=== PATIENT | male | born 1965 | race Caucasian/White ===

== ENCOUNTER 2020-11-03 19:45 | Emergency (ER) | payer MEDICAID ==
--- NOTE | 2020-11-03 21:15 | ED Physician Documentation ---
PD HPI CHEST PAIN - Stated complaint Stated Complaint: CP/SOA/BACK PX - Chief complaint Chief Complaint: Resp - History obtained from History obtained from: Patient - History of Present Illness Timing - onset: How many minutes ago (approximately 45 minutes [facility]OME[facility]) Timing - onset during: Rest Timing - details: Abrupt onset Pain level max: 5 Pain level now: 0 Quality: Pain Location: Left chest Radiation: Other (left upper back) Improved by: Other (gradually improved and resolved by the time of this evaluation but no obvious ameliorating factors) Worsened by: Other (there were no apparent exacerbating factors) Associated symptoms: Shortness of air. No: Diaphoresis, Nausea, Vomiting, Palpitations, Cough Similar symptoms before: Has not had sx before Recently seen: Not recently seen - Additional information Additional information: patient says he had sudden onset dyspnea with left chest pain that radiated to the left upper back, onset approximately 45 minutes DOME[facility]IC MAID while at home at rest in bed. He says the symptoms have gradually improved and are resolved by the time of this evaluation. He says he has h/o right spontaneous pneumothorax in the past and this was one of his chief concerns. He had the Jackson [employer] Jackson COVID vaccination this past Monday and since then has had generalized weakness with decreased appetite, diarrhea, generalized myalgias. Review of Systems Constitutional: reports: Reviewed and negative Cardiac: reports: Chest pain / pressure. denies: Palpitations, Pedal edema, Calf pain Respiratory: reports: Dyspnea. denies: Cough, Hemoptysis, Wheezing GI: reports: Abdominal Pain (across upper abdomen). denies: Nausea, Vomiting, Constipation, Diarrhea, Hematemesis, Bloody / black stool : denies: Dysuria, Frequency Musculoskeletal: denies: Extremity swelling Neurologic: reports: Generalized weakness. denies: Focal weakness, Numbness, Headache PD PAST MEDICAL HISTORY - Past Medical History Past Medical History: Yes Respiratory: COPD - Allergies Allergies/Adverse Reactions: Allergies Allergy/AdvReac Type Severity Reaction Status Date / Time No Known Drug Allergies Allergy Verified 11/03/20 19:57 PD ED PE NORMAL - Vitals Vital signs reviewed: Yes - General General: Alert and oriented X 3, No acute distress, Well developed/nourished - HEENT HEENT: Other (tacky/pasty mucous membranes) - Cardiac Cardiac: RRR, No murmur - Respiratory Respiratory: No respiratory distress, Other (distant breath sounds bilaterally) - Abdomen Abdomen: Soft, Other (TTP across upper abdomen, most prominently in epigastrium; no guarding or rebound) - Back Back: No CVA TTP - Derm Derm: Normal color, Warm and dry - Extremities Extremities: No edema Results - Vitals Vitals: Oxygen O2 Source Room air - EKG (time done) No standard instances Rate: Rate (enter#) (72) Rhythm: NSR Dumas: Normal Intervals: Normal MT QRS: Normal Ischemia: Normal ST segments - Labs Labs: Laboratory Tests 11/03/20 11/03/20 11/03/20 22:20 22:20 22:20 WBC 5.6 RBC 5.30 Hgb 16.7 Hct 50.2 MCV 94.7 H MCH 31.5 H MCHC 33.3 RDW 13.1 Plt Count 243 MPV 9.2 Neut # (Auto) 2.9 Lymph # (Auto) 2.0 Winston # (Auto) 0.6 Eos # (Auto) 0.1 Baso # (Auto) 0.1 Absolute Nucleated RBC 0.00 Nucleated RBC % 0.0 Sodium 140 Potassium 3.7 Chloride 105 Carbon Dioxide 25 Anion Gap 10.0 BUN 12 Creatinine 0.9 Estimated GFR (MDRD) 88 L Glucose 93 Calcium 9.0 Total Bilirubin 0.6 AST 25 ALT 27 Alkaline Phosphatase 62 Troponin I High Sens 5.7 Total Protein 7.9 Albumin 4.4 Globulin 3.5 Albumin/Globulin Ratio 1.3 Lipase 42 - Rads (name of study) chest xray Radiology: Prelim report reviewed, See rad report CT A/P with IV contrast Radiology: Prelim report reviewed, See rad report PD MEDICAL DECISION MAKING - ED course Complexity details: reviewed results, re-evaluated patient, considered differential, d/w patient ED course: Unremarkable blood tests, EKG, and CXR. His chief complaint is left chest pain, but on exam he has significant TTP across upper abdomen although without rebound or guarding; thus CT A/P ordered, and these results are unremarkable for acute process. On reevaluation, he says he feels well and is requesting discharge home. Departure - Departure Disposition: 01 Home, Self Care Clinical Impression: Chest pain Condition: Good Instructions: ED Chest Pain Atypical Unkn Cause Follow-Up: Dontae Ashley MD [Primary Care Provider] - Discharge Date/Time: 11/04/20 02:14
[2020-11-03] MEDS ORDERED: SODIUM CHLORIDE 0.9% 1,000 ML IV STA (21:52)
[2020-11-03] MEDS ORDERED: IOPAMIDOL-300 100 ML VIAL ONE (22:26)
[2020-11-03 22:39] LABS: BASOPHILS # (AUTO) 0.1 10^3/uL (0.0-0.1); BASOPHILS % (AUTO) 0.9 %; EOSINOPHILS # (AUTO) 0.1 10^3/uL (0.0-0.7); EOSINOPHILS % (AUTO) 1.8 %; HCT - HEMATOCRIT 50.2 % (42.0-52.0); HGB - HEMOGLOBIN 16.7 g/dL (14.0-18.0); LYMPHOCYTES % (AUTO) 35.6 %; MEAN CORPUSCULAR HEMOGLOBIN 31.5 pg (27.0-31.0); MEAN CORPUSCULAR HGB CONC 33.3 g/dL (32.0-36.0); MEAN CORPUSCULAR VOLUME 94.7 fL (80.0-94.0); MEAN PLATELET VOLUME 9.2 fL (7.4-11.4); MONOCYTES # (AUTO) 0.6 10^3/uL (0.0-1.0); MONOCYTES % (AUTO) 10.6 %; NEUTROPHILS # (AUTO) 2.9 10^3/uL (1.5-6.6); NEUTROPHILS % (AUTO) 50.9 %; PLT - PLATELET COUNT 243 10^3/uL (130-450); RED CELL DISTRIBUTION WIDTH 13.1 % (12.0-15.0); WHITE BLOOD COUNT 5.6 x10^3/uL (4.8-10.8)
[2020-11-03 22:57] LABS: ALBUMIN 4.4 g/dL (3.2-5.5); ALBUMIN/GLOBULIN RATIO 1.3 (1.0-2.2); BILIRUBIN,TOTAL 0.6 mg/dL (0.2-1.0); CREATININE 0.9 mg/dL (0.6-1.2); POTASSIUM 3.7 mmol/L (3.5-5.0); TOTAL PROTEIN 7.9 g/dL (6.7-8.2)
[2020-11-04] MEDS ORDERED: IOPAMIDOL-300 100 ML VIAL IVP ONE (00:02)
[2020-11-04 01:29] VITALS: BP 127/88
--- NOTE | 2020-11-04 07:42 | XRAY Report ---
PROCEDURE: Chest 2 View X-Ray INDICATIONS: left chest pain, dyspnea TECHNIQUE: 2 view(s) of the chest. COMPARISON: None. FINDINGS: Surgical changes and devices: None. Lungs and pleura: No pleural effusions or pneumothorax. Lungs are clear. Lungs are hyperinflated king ggesting COPD. Mediastinum: Mediastinal contours are normal. Heart size is normal. Bones and chest wall: No suspicious bony abnormalities. Soft tissues appear unremarkable. IMPRESSION: No acute cardiopulmonary disease process. Reviewed by: Joan Milner MD, PhD on 11/04/2020 7:41 AM PDT Approved by: Joan Milner MD, PhD on 11/04/2020 7:41 AM PDT Station ID: [id number]
--- NOTE | 2020-11-04 07:43 | CT Report ---
PROCEDURE: Abdomen/Pelvis W INDICATIONS: upper abdominal pain CONTRAST: IV CONTRAST: Isovue 300 ml: 100 PO CONTRAST: *NO PO CONTRAST TECHNIQUE: After the administration of intravenous contrast, 5 mm thick sections acquired from the diaphragms to the symphysis. 5 mm thick coronal and sagittal reformats were acquired. For radiation dose reducti on, the following was used: automated exposure control, adjustment of mA and/or kV according to tyshawn ent size. COMPARISON: None. FINDINGS: Image quality: Excellent. ABDOMEN: Lung bases: Lung bases are clear. Bibasilar emphysematous change. Heart size is normal. Solid organs: Liver and spleen are normal in size and enhancement. Gallbladder is unremarkable. Bi liary system is non dilated. Pancreas enhances normally. No adrenal nodules. Kidneys demonstrate n ormal size and enhancement, without hydronephrosis. There is a 6 cm exophytic left renal cyst. Peritoneum and bowel: Decompressed stomach. This makes the stomach wall looks somewhat prominent. Morris wel loops demonstrate normal wall thickness and caliber. No free fluid or air. Nodes and vessels: No retroperitoneal or mesenteric adenopathy by size criteria. Aorta and inferior vena cava are normal in size. Miscellaneous: No ventral hernias. PELVIS: Genitourinary: The bladder is mildly distended. The prostate is enlarged. There is thickening of the anterior wall of the stomach. Miscellaneous: No inguinal hernias or adenopathy. Bones: No suspicious bony lesions. No vertebral body compression fractures. IMPRESSION: 1. No evidence of acute abdominal process. 2. COPD. 3. Prostate enlargement. 4. Focal anterior bladder wall thickening. A preliminary report with the above findings was provided at the time of the study by [facility]. Reviewed by: Eddie Jon MD on 11/04/2020 7:42 AM PDT Approved by: Eddie Jon MD on 11/04/2020 7:42 AM PDT Station ID: [id number]
== END 2020-11-04 02:14 | disposition home or self-care (01) ==
LOC: ED 19:45
DX: R07.89 Other chest pain (principal); J44.9 Chronic obstructive pulmonary disease, unspecified
CPT/HCPCS: 36415; 71046; 74177; 80053; 83690; 84484; 85025; 93005; 99284; Q9967

== ENCOUNTER 2021-03-20 07:57 | Emergency (ER) | payer MEDICAID ==
[2021-03-20] MEDS ORDERED: SODIUM CHLORIDE 0.9% 1,000 ML IV STA (08:21)
[2021-03-20] MEDS ORDERED: ONDANSETRON 4 MG/2 ML VIAL IVP STA ×2 (08:21→10:37)
[2021-03-20] MEDS ORDERED: KETOROLAC 30 MG/ML VIAL IVP STA (08:21)
--- NOTE | 2021-03-20 08:27 | ED Physician Documentation ---
PD HPI CHEST PAIN - Stated complaint Stated Complaint: BACK/CHEST PAIN - Chief complaint Chief Complaint: Back Pain - History obtained from History obtained from: Patient - History of Present Illness Timing - onset: How many days ago (2) Timing - onset during: Rest Timing - duration: Days (2) Timing - details: Abrupt onset, Still present Quality: Sharp, Pain Location: Left chest Radiation: Back, Abdominal Improved by: Rest Worsened by: Exertion, Inspiration, Movement, Palpation, Position Associated symptoms: Shortness of air, Nausea. No: Diaphoresis, Vomiting, Cough Similar symptoms before: No diagnosis Recently seen: Not recently seen - Additional information Additional information: 36-year-old male with a prior history of spontaneous pneumothorax has come to the emergency department today with acute left-sided back pain radiating to his chest and abdomen. He has had some nausea associated with this he has not vomited. He does have more pain with inspiration and movement. He states he spent the day in bed yesterday and today continue to have this same pain and did not sleep well last night. He has had similar episode and has been evaluated in the emerge department previously at that time his symptoms resolved and he had no further episodes. Review of Systems Constitutional: denies: Fever Eyes: denies: Decreased vision Ears: denies: Ear pain Nose: denies: Congestion Throat: denies: Sore throat Cardiac: reports: Chest pain / pressure. denies: Palpitations, Pedal edema, Calf pain Respiratory: reports: Dyspnea. denies: Cough, Wheezing GI: reports: Abdominal Pain, Nausea. denies: Abdominal Swelling, Vomiting, Constipation, Diarrhea : denies: Dysuria, Frequency PD PAST MEDICAL HISTORY - Past Medical History Past Medical History: Yes Cardiovascular: None Respiratory: COPD, Other Neuro: None Endocrine/Autoimmune: None GI: Ulcers : Benign prostate hypertrophy, Other HEENT: Other Psych: None Musculoskeletal: None Derm: None Other Past Medical History: left pneumothorax - Past Surgical History Past Surgical History: Yes General: Colonoscopy Cardiovascular: Other - Present Medications Home Medications: Ambulatory Orders Medication Instructions Recorded Confirmed Albuterol Sulfate [Proair Hfa 1 - 2 puffs IH Q4HR PRN 03/20/21 03/20/21 Inhaler] Amox/Clav 875/125 [Augmentin] 1 each PO Q12H #20 tablet 03/20/21 Azithromycin [Zithromax] 250 mg PO DAILY #4 tablet 03/20/21 Fluticasone/Salmeterol [Advair 1 puffs IH BID 03/20/21 03/20/21 500-50 Diskus] Ipratropium [place] 1 spray NS DAILY 03/20/21 03/20/21 Sucralfate [Carafate] 1 gm PO ACHS #60 tablet 03/20/21 Tamsulosin [Flomax] 0.4 mg PO DAILY 03/20/21 03/20/21 Zolpidem [Ambien] 0 mg PO HS PRN 03/20/21 03/20/21 - Allergies Allergies/Adverse Reactions: Allergies Allergy/AdvReac Type Severity Reaction Status Date / Time No Known Drug Allergies Allergy Verified 03/20/21 08:00 - Social History Does the pt smoke?: No Smoking Status: Former smoker Does the pt drink ETOH?: No Does the pt have substance abuse?: Yes Substance Use and Type: Marijuana - Immunizations Immunizations are current?: Yes - POLST Patient has POLST: No PD ED PE NORMAL - Vitals Vital signs reviewed: Yes (tachy ) - General General: Alert and oriented X 3, Well developed/nourished, Other (tachypneic but able to speak in full sentences appears anxious) - HEENT HEENT: Atraumatic, PERRL, EOMI - Neck Neck: Supple, no meningeal sign, No bony TTP - Cardiac Cardiac: No murmur, Other (tachy ) - Respiratory Respiratory: Other (tcahypneic at rest with clear sounds reduced volume) - Abdomen Abdomen: Soft, Other (epigastric tenderness is present. ) Results - Vitals Vitals: Vital Signs - 24 hr 03/20/21 03/20/21 03/20/21 08:00 08:16 08:33 Temperature 37.1 C Heart Rate 102 H 102 H 96 Respiratory 20 24 20 Rate Blood Pressure 110/60 108/71 110/74 O2 Saturation 100 100 98 03/20/21 03/20/21 03/20/21 09:02 09:30 10:34 Temperature 37.1 C 36.2 C L Heart Rate 97 99 95 Respiratory 21 20 21 Rate Blood Pressure 112/75 116/67 117/68 O2 Saturation 100 94 96 Oxygen O2 Source Room air - EKG (time done) 0806 Rate: Rate (enter#) (98) Rhythm: NSR Compare to prior EKG: Changed from prior EKG (SPT 10-28-20 the rate is faster and the morphology of the inferior limb leads has changed. No ischemia) Computer interpretation: Agree with computer - Labs Labs: Laboratory Tests 03/20/21 03/20/21 03/20/21 08:10 08:10 08:10 WBC 26.7 H RBC 5.08 Hgb 16.7 Hct 48.8 MCV 96.1 H MCH 32.9 H MCHC 34.2 RDW 13.4 Plt Count 239 MPV 9.8 Neut # (Auto) 23.2 H Lymph # (Auto) 0.7 L Tift # (Auto) 1.2 H Eos # (Auto) 0.1 Baso # (Auto) 0.1 Absolute Nucleated RBC 0.00 Band Neuts % (Manual) Not Reportable Abnorm Lymph % (Manual) Not Reportable Nucleated RBC % 0.0 Neutrophils # (Manual) Not Reportable Lymphocytes # (Manual) Not Reportable Monocytes # (Manual) Not Reportable Eosinophils # (Manual) Not Reportable Basophils # (Manual) Not Reportable Differential Comment Y WBC Morphology NORMAL APPEARANCE Platelet Estimate NORMAL (130-450,000) Platelet Morphology NORMAL APPEARANCE RBC Morph Micro Appear NORMAL APPEARANCE Sodium 140 Potassium 4.3 Chloride 100 L Carbon Dioxide 26 Anion Gap 14.0 H BUN 18 Creatinine 1.2 Estimated GFR (MDRD) 63 L Glucose 87 Calcium 9.0 Total Bilirubin 1.0 AST 25 ALT 25 Alkaline Phosphatase 54 Troponin I High Sens 6.6 Total Protein 7.0 Albumin 3.8 Globulin 3.2 Albumin/Globulin Ratio 1.2 Lipase 24 Nasal Adenovirus (PCR) Nasal B. parapertussis DNA (PCR) Nasal Coronavir 229E PCR Nasal Coronavir HKU1 PCR Nasal Coronavir NL63 PCR Nasal Coronavir OC43 PCR Nasal Enterovir/Rhinovir PCR Nasal Influenza B PCR Nasal Influenza A PCR Nasal Parainfluen 1 PCR Nasal Parainfluen 2 PCR Nasal Parainfluen 3 PCR Nasal Parainfluen 4 PCR Nasal RSV (PCR) Nasal B.pertussis DNA PCR Nasal C.pneumoniae (PCR) Rohith Human Metapneumo PCR Nasal M.pneumoniae (PCR) Nasal SARS-CoV-2 (PCR) 03/20/21 08:53 WBC RBC Hgb Hct MCV MCH MCHC RDW Plt Count MPV Neut # (Auto) Lymph # (Auto) Tift # (Auto) Eos # (Auto) Baso # (Auto) Absolute Nucleated RBC Band Neuts % (Manual) Abnorm Lymph % (Manual) Nucleated RBC % Neutrophils # (Manual) Lymphocytes # (Manual) Monocytes # (Manual) Eosinophils # (Manual) Basophils # (Manual) Differential Comment WBC Morphology Platelet Estimate Platelet Morphology RBC Morph Micro Appear Sodium Potassium Chloride Carbon Dioxide Anion Gap BUN Creatinine Estimated GFR (MDRD) Glucose Calcium Total Bilirubin AST ALT Alkaline Phosphatase Troponin I High Sens Total Protein Albumin Globulin Albumin/Globulin Ratio Lipase Nasal Adenovirus (PCR) NOT DETECTED Nasal B. parapertussis DNA (PCR) NOT DETECTED Nasal Coronavir 229E PCR NOT DETECTED Nasal Coronavir HKU1 PCR NOT DETECTED Nasal Coronavir NL63 PCR NOT DETECTED Nasal Coronavir OC43 PCR NOT DETECTED Nasal Enterovir/Rhinovir PCR NOT DETECTED Nasal Influenza B PCR NOT DETECTED Nasal Influenza A PCR NOT DETECTED Nasal Parainfluen 1 PCR NOT DETECTED Nasal Parainfluen 2 PCR NOT DETECTED Nasal Parainfluen 3 PCR NOT DETECTED Nasal Parainfluen 4 PCR NOT DETECTED Nasal RSV (PCR) NOT DETECTED Nasal B.pertussis DNA PCR NOT DETECTED Nasal C.pneumoniae (PCR) NOT DETECTED Rohith Human Metapneumo PCR NOT DETECTED Nasal M.pneumoniae (PCR) NOT DETECTED Nasal SARS-CoV-2 (PCR) NOT DETECTED - Rads (name of study) chest Radiology: Prelim report reviewed (Impression: Airspace opacity in left upper lobe which is new compared to the prior exam and is most compatible with pneumonia. Recommend follow-up to resolution. Emphysematous change.), EMP read indepedently, See rad report PD MEDICAL DECISION MAKING - ED course Complexity details: reviewed old records, reviewed results, re-evaluated patient, considered differential, d/w patient ED course: 56-year-old male presents with draumatic left sided chest pain worse with inspiration and movement and he has additional abdominal pain associated with this. He has been taking a lot of ibuprofen over the last day. On evaluation in the emergency department he is found to have pneumonia on his chest x-ray this is an atypical appearance and is tested for Covid and is negative for that, as well as the other viruses and pathogens tested. He is treated for community- acquired pneumonia in the emergency department with Rocephin intravenously a gram and 500 mils of a azithromycin. In addition is given dexamethasone and Tor adol with improvement in his pain. He continues to have pain in his abdomen and this begins to overweigh everything else that is present. He is administered a GI cocktail with 10 mL of viscous lidocaine 30 mils of Mylanta and a gram of Carafate. He has resolution of his abdominal pain. He is administered an additional 40 mg of Protonix intravenously. We will treat the patient for community-acquired pneumonia and gastritis. Departure - Departure Disposition: 01 Home, Self Care Clinical Impression: CAP (community acquired pneumonia) Qualifiers: Laterality: left Lung location: upper lobe of lung Qualified Code(s): J18.9 - Pneumonia, unspecified organism Gastritis Qualifiers: Gastritis type: other gastritis Chronicity: acute Gastritis bleeding: without bleeding Qualified Code(s): K29.00 - Acute gastritis without bleeding Condition: Stable Instructions: ED Pneumonia Adult, ED PUD Vs Gastritis Follow-Up: Your, doctor in [place] [Other] Prescriptions: Amox/Clav 875/125 [Augmentin] 1 each PO Q12H #20 tablet Sucralfate [Carafate] 1 gm PO ACHS #60 tablet Azithromycin [Zithromax] 250 mg PO DAILY #4 tablet Comments: Today we have discovered you have pneumonia in the left upper lobe of your lung. We are expecting the antibiotic therapy to be successful in improving this pneumonia and expectation is to have improvement day by day. In addition it appears you have a gastritis or inflammation to the lining of your stomach and this is likely related to the use of ibuprofen. The recommendation is to discontinue the use of the ibuprofen discontinue any alcohol use and take a medication on a regular basis to reduce the acid in your stomach such as Pepcid AC or Nexium which are available [id number]. In addition I have prescribed Carafate which is an aid to healing. These medicines should be taken for at least 2 weeks.
--- NOTE | 2021-03-20 08:42 | XRAY Report ---
PROCEDURE: Chest 1 View X-Ray INDICATIONS: Chest Pain TECHNIQUE: One view of the chest was acquired. COMPARISON: CXR 11/03/2020. Lung bases on CT abdomen and pelvis 11/03/2020. FINDINGS: Surgical changes and devices: None. Lungs and pleura: No pleural effusions or pneumothorax. Irregular opacity in the left upper lobe, ne w. Prominent lung volumes. Emphysematous change. Mediastinum: Mediastinal contours appear unchanged. Heart size is normal. Bones and chest wall: No suspicious bony lesions. Overlying soft tissues appear unremarkable. IMPRESSION: Airspace opacity in the left upper lobe which is new compared to the prior exam and is most compatibl e with pneumonia. Recommend follow-up to resolution. Emphysematous change. Reviewed by: Aniket Roque MD on 03/20/2021 7:41 AM NANCY Approved by: Aniket Roque MD on 03/20/2021 7:41 AM NANCY Station ID: [id number]
[2021-03-20 09:08] LABS: BASOPHILS # (AUTO) 0.1 10^3/uL (0.0-0.1); BASOPHILS % (AUTO) 0.3 %; EOSINOPHILS # (AUTO) 0.1 10^3/uL (0.0-0.7); EOSINOPHILS % (AUTO) 0.5 %; HCT - HEMATOCRIT 48.8 % (42.0-52.0); HGB - HEMOGLOBIN 16.7 g/dL (14.0-18.0); LYMPHOCYTES # (AUTO) 0.7 10^3/uL (1.5-3.5); LYMPHOCYTES % (AUTO) 2.4 %; MEAN CORPUSCULAR HEMOGLOBIN 32.9 pg (27.0-31.0); MEAN CORPUSCULAR HGB CONC 34.2 g/dL (32.0-36.0); MEAN CORPUSCULAR VOLUME 96.1 fL (80.0-94.0); MEAN PLATELET VOLUME 9.8 fL (7.4-11.4); MONOCYTES # (AUTO) 1.2 10^3/uL (0.0-1.0); MONOCYTES % (AUTO) 4.3 %; NEUTROPHILS # (AUTO) 23.2 10^3/uL (1.5-6.6); NEUTROPHILS % (AUTO) 87.2 %; PLT - PLATELET COUNT 239 10^3/uL (130-450); RED BLOOD COUNT 5.08 10^6/uL (4.70-6.10); RED CELL DISTRIBUTION WIDTH 13.4 % (12.0-15.0); WHITE BLOOD COUNT 26.7 x10^3/uL (4.8-10.8)
[2021-03-20 09:20] LABS: ALBUMIN 3.8 g/dL (3.2-5.5); ALBUMIN/GLOBULIN RATIO 1.2 (1.0-2.2); CREATININE 1.2 mg/dL (0.6-1.2); POTASSIUM 4.3 mmol/L (3.5-5.0)
[2021-03-20] MEDS ORDERED: cefTRIAXone 1 GM VIAL IVP STA (09:29)
[2021-03-20] MEDS ORDERED: DEXAMETHASONE 10 MG/ML VIAL IVP STA (09:29)
[2021-03-20] MEDS ORDERED: AZITHROMYCIN INJ 500 MG in SODIUM CHLORIDE 0.9% 250 ML IV STA (09:29)
[2021-03-20] MEDS ORDERED: SUCRALFATE 1 GM/10 ML UDC PO STA (10:02)
[2021-03-20 10:34] LABS: B. PARAPERTUSSIS- RESP PCR PAN NOT DETECTED; B. PERTUSSIS- RESP PCR PANEL NOT DETECTED; C. PNEUMONIAE- RESP PCR PANEL NOT DETECTED; CORONAVIRUS 229E-RESP PCR NOT DETECTED; CORONAVIRUS HKU1-RESP PCR NOT DETECTED; CORONAVIRUS NL63-RESP PCR NOT DETECTED; CORONAVIRUS OC43-RESP PCR NOT DETECTED; HUMAN METAPNEUMOVIRUS NOT DETECTED; INFLUENZA A- RESP PCR PANEL NOT DETECTED; INFLUENZA B - RESP PCR PANEL NOT DETECTED; M. PNEUMONIAE- RESP PCR PANEL NOT DETECTED; PARAINFLUENZA VIRUS 1 NOT DETECTED; PARAINFLUENZA VIRUS 2 NOT DETECTED; PARAINFLUENZA VIRUS 3 NOT DETECTED; PARAINFLUENZA VIRUS 4 NOT DETECTED; RHINOVIRUS/ENTEROVIRUS NOT DETECTED; RSV- RESP PCR PANEL NOT DETECTED; SARS-CoV-2 -RESP PCR PANEL NOT DETECTED
[2021-03-20] MEDS ORDERED: MAG HYDROX/AL HYDROX/SIMETH 30 ML UDC PO STA (10:40)
[2021-03-20] MEDS ORDERED: LIDOCAINE VISCOUS 2% 15 ML UDC MM STA (10:40)
[2021-03-20 10:41] LABS: DIFFERENTIAL COMMENT Y; PLATELET ESTIMATE, MANUAL NORMAL (130-450,000) (NORMAL); PLATELET MORPHOLOGY NORMAL APPEARANCE (NORMAL); RBC MORPHOLOGY (MULTIPLE) NORMAL APPEARANCE (NORMAL); WBC MORPHOLOGY (MULTIPLE) NORMAL APPEARANCE (NORMAL)
[2021-03-20] MEDS ORDERED: PANTOPRAZOLE 40 MG VIAL IVP STA (11:18)
[2021-03-20 12:21] VITALS: BP 112/78
== END 2021-03-20 12:24 | disposition home or self-care (01) ==
LOC: ED 07:57
DX: J18.9 Pneumonia, unspecified organism (principal); K29.00 Acute gastritis without bleeding; Z20.822 Contact with and (suspected) exposure to COVID-19
CPT/HCPCS: 0202U; 36415; 71045; 80053; 83690; 84484; 85025; 93005; 96365; 96375; 96376; 99284; 99285; A9270

== ENCOUNTER 2021-03-26 20:09 | Inpatient (IN) | payer MEDICAID ==
--- NOTE | 2021-03-26 20:23 | ED Physician Documentation ---
PD HPI DYSPNEA - Stated complaint Stated Complaint: SOA - History obtained from History obtained from: Patient - History of Present Illness Timing - onset: How many weeks ago (1) Timing - details: Gradual onset, Waxing and waning Pain level now: 3 Associated symptoms: Chest pain / discomfort. No: Fever, Cough, Hemoptysis, Wheezing Similar symptoms before: Diagnosis (COPD) Recently seen: Emergency Dept - Additional information Additional information: T+R 6 days ago for dyspnea, work up at that time resulted in diagnosis of pneumonia; he was able to be discharged from ED, rx for zithromax and augmentin, which he has been taking as prescribed (finished with zithromax, still has few days of 10-day course of augmentin remaining). He presents at this time because "my breathing never got better" (per patient, referring to still feeling as short of breath as when he was here last week), as well as developed 4 days of constant chest pain across anterior chest that has no exacerbating nor ameliorating factors. Has COPD, does not use oxygen at home Review of Systems Constitutional: reports: Chills, Other ("feel really cold, then really hot" (per patient), but has been taking temperature at home and has not had fever). denies: Fever, Sweats Cardiac: reports: Chest pain / pressure. denies: Palpitations, Pedal edema, Calf pain Respiratory: reports: Dyspnea, Cough (minimal, moist but nonproductive). denies: Hemoptysis, Wheezing GI: reports: Reviewed and negative Musculoskeletal: denies: Extremity swelling PD PAST MEDICAL HISTORY - Past Medical History Cardiovascular: None Respiratory: COPD, Other Neuro: None Endocrine/Autoimmune: None GI: Ulcers : Benign prostate hypertrophy, Other HEENT: Other Psych: None Musculoskeletal: None Derm: None - Past Surgical History Past Surgical History: Yes General: Colonoscopy Cardiovascular: Other - Present Medications Home Medications: Ambulatory Orders Medication Instructions Recorded Confirmed Albuterol Sulfate [Proair Hfa 1 - 2 puffs IH Q4HR PRN 03/20/21 03/26/21 Inhaler] Amox/Clav 875/125 [Augmentin] 1 each PO Q12H #20 tablet 03/20/21 03/26/21 Azithromycin [Zithromax] 250 mg PO DAILY #4 tablet 03/20/21 03/26/21 Fluticasone/Salmeterol [Advair 1 puffs IH BID 03/20/21 03/26/21 500-50 Diskus] Ipratropium [place] 1 spray NS DAILY 03/20/21 03/26/21 Sucralfate [Carafate] 1 gm PO ACHS #60 tablet 03/20/21 03/26/21 Tamsulosin [Flomax] 0.4 mg PO DAILY 03/20/21 03/26/21 Zolpidem [Ambien] 0 mg PO HS PRN 03/20/21 03/26/21 - Allergies Allergies/Adverse Reactions: Allergies Allergy/AdvReac Type Severity Reaction Status Date / Time No Known Drug Allergies Allergy Verified 03/20/21 08:00 - Social History Does the pt smoke?: No Smoking Status: Former smoker Does the pt drink ETOH?: No Does the pt have substance abuse?: Yes - Immunizations Immunizations are current?: Yes - POLST Patient has POLST: No PD ED PE NORMAL - Vitals Vital signs reviewed: Yes - General General: Alert and oriented X 3, No acute distress, Well developed/nourished - Neck Neck: Supple, no meningeal sign - Cardiac Cardiac: RRR, No murmur - Respiratory Respiratory: No respiratory distress - Abdomen Abdomen: Soft, Non tender - Extremities Extremities: No edema PD ED PE EXPANDED - Respiratory Respiratory: Decreased breath sounds (distant breath sounds bilaterally). No: Wheezing, Rhonchi, Rales Results - Vitals Vitals: Vital Signs - 24 hr 03/26/21 03/26/21 03/26/21 20:23 20:49 20:55 Temperature 36.3 C L Heart Rate 96 89 91 Respiratory 28 H 18 28 H Rate Blood Pressure 126/69 O2 Saturation 96 98 03/26/21 03/26/21 03/26/21 21:06 22:16 22:38 Temperature Heart Rate 84 102 H 83 Respiratory 18 24 22 Rate Blood Pressure 116/71 113/73 O2 Saturation 94 94 03/27/21 01:41 Temperature 37.0 C Heart Rate 84 Respiratory 17 Rate Blood Pressure O2 Saturation 94 Oxygen O2 Source Room air - EKG (time done) No standard instances Rate: Rate (enter#) (96) Rhythm: NSR [place]: Normal Intervals: Normal MO QRS: Normal Ischemia: Normal ST segments, Other (questionable Q waves inferior leads were not on last week's ED EKG but were on 11/03/20 ED EKG) - Labs Labs: Laboratory Tests 03/26/21 03/26/21 03/26/21 20:30 20:30 20:30 WBC 23.9 H RBC 4.64 L Hgb 14.7 Hct 43.8 MCV 94.4 H MCH 31.7 H MCHC 33.6 RDW 14.5 Plt Count 520 H MPV 9.2 Neut # (Auto) 20.1 H Lymph # (Auto) 1.7 [place] # (Auto) 1.3 H Eos # (Auto) 0.2 Baso # (Auto) 0.1 Absolute Nucleated RBC 0.00 Nucleated RBC % 0.0 Sodium 135 Potassium 3.4 L Chloride 96 L Carbon Dioxide 26 Anion Gap 13.0 BUN 16 Creatinine 0.8 Estimated GFR (MDRD) 100 Glucose 104 H Lactic Acid Calcium 8.4 L Troponin I High Sens 7.4 B-Natriuretic Peptide Nasal Adenovirus (PCR) Nasal B. parapertussis DNA (PCR) Nasal Coronavir 229E PCR Nasal Coronavir HKU1 PCR Nasal Coronavir NL63 PCR Nasal Coronavir OC43 PCR Nasal Enterovir/Rhinovir PCR Nasal Influenza B PCR Nasal Influenza A PCR Nasal Parainfluen 1 PCR Nasal Parainfluen 2 PCR Nasal Parainfluen 3 PCR Nasal Parainfluen 4 PCR Nasal RSV (PCR) Nasal B.pertussis DNA PCR Nasal C.pneumoniae (PCR) Rohith Human Metapneumo PCR Nasal M.pneumoniae (PCR) Nasal SARS-CoV-2 (PCR) Urine Opiates Screen Ur Oxycodone Screen Urine Methadone Screen Ur Propoxyphene Screen Ur Barbiturates Screen Ur Tricyclics Screen Ur Phencyclidine Scrn Ur Amphetamine Screen U Methamphetamines Scrn U Benzodiazepines Scrn Urine Cocaine Screen U Cannabinoids Screen 03/26/21 03/26/21 03/27/21 20:30 21:43 00:15 WBC RBC Hgb Hct MCV MCH MCHC RDW Plt Count MPV Neut # (Auto) Lymph # (Auto) [place] # (Auto) Eos # (Auto) Baso # (Auto) Absolute Nucleated RBC Nucleated RBC % Sodium Potassium Chloride Carbon Dioxide Anion Gap BUN Creatinine Estimated GFR (MDRD) Glucose Lactic Acid 1.0 Calcium Troponin I High Sens B-Natriuretic Peptide 67 Nasal Adenovirus (PCR) Nasal B. parapertussis DNA (PCR) Nasal Coronavir 229E PCR Nasal Coronavir HKU1 PCR Nasal Coronavir NL63 PCR Nasal Coronavir OC43 PCR Nasal Enterovir/Rhinovir PCR Nasal Influenza B PCR Nasal Influenza A PCR Nasal Parainfluen 1 PCR Nasal Parainfluen 2 PCR Nasal Parainfluen 3 PCR Nasal Parainfluen 4 PCR Nasal RSV (PCR) Nasal B.pertussis DNA PCR Nasal C.pneumoniae (PCR) Rohith Human Metapneumo PCR Nasal M.pneumoniae (PCR) Nasal SARS-CoV-2 (PCR) Urine Opiates Screen NEGATIVE Ur Oxycodone Screen NEGATIVE Urine Methadone Screen NEGATIVE Ur Propoxyphene Screen NEGATIVE Ur Barbiturates Screen NEGATIVE Ur Tricyclics Screen NEGATIVE Ur Phencyclidine Scrn NEGATIVE Ur Amphetamine Screen NEGATIVE U Methamphetamines Scrn NEGATIVE U Benzodiazepines Scrn NEGATIVE Urine Cocaine Screen NEGATIVE U Cannabinoids Screen POSITIVE H 03/27/21 01:38 WBC RBC Hgb Hct MCV MCH MCHC RDW Plt Count MPV Neut # (Auto) Lymph # (Auto) [place] # (Auto) Eos # (Auto) Baso # (Auto) Absolute Nucleated RBC Nucleated RBC % Sodium Potassium Chloride Carbon Dioxide Anion Gap BUN Creatinine Estimated GFR (MDRD) Glucose Lactic Acid Calcium Troponin I High Sens B-Natriuretic Peptide Nasal Adenovirus (PCR) NOT DETECTED Nasal B. parapertussis DNA (PCR) NOT DETECTED Nasal Coronavir 229E PCR NOT DETECTED Nasal Coronavir HKU1 PCR NOT DETECTED Nasal Coronavir NL63 PCR NOT DETECTED Nasal Coronavir OC43 PCR NOT DETECTED Nasal Enterovir/Rhinovir PCR NOT DETECTED Nasal Influenza B PCR NOT DETECTED Nasal Influenza A PCR NOT DETECTED Nasal Parainfluen 1 PCR NOT DETECTED Nasal Parainfluen 2 PCR NOT DETECTED Nasal Parainfluen 3 PCR NOT DETECTED Nasal Parainfluen 4 PCR NOT DETECTED Nasal RSV (PCR) NOT DETECTED Nasal B.pertussis DNA PCR NOT DETECTED Nasal C.pneumoniae (PCR) NOT DETECTED Rohith Human Metapneumo PCR NOT DETECTED Nasal M.pneumoniae (PCR) NOT DETECTED Nasal SARS-CoV-2 (PCR) NOT DETECTED Urine Opiates Screen Ur Oxycodone Screen Urine Methadone Screen Ur Propoxyphene Screen Ur Barbiturates Screen Ur Tricyclics Screen Ur Phencyclidine Scrn Ur Amphetamine Screen U Methamphetamines Scrn U Benzodiazepines Scrn Urine Cocaine Screen U Cannabinoids Screen - Rads (name of study) chest xray Radiology: Prelim report reviewed, See rad report PD MEDICAL DECISION MAKING - ED course Complexity details: reviewed old records, reviewed results, re-evaluated patient, considered differential, d/w patient ED course: c/o worsening dyspnea since being T+R from this ED 6 days ago when he was prescribed both zithromax (completed 5 day course) and augmentin (completed 6 of 10 day course). 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 His CXR shows worsening PHU and lingular process suspicious for pneumonia. Given worsening despite the antibiotics, will admit for further treatment and observation. Departure - Departure Disposition: [facility] DC/Xfer Clinical Impression: Pneumonia Qualifiers: Pneumonia type: due to unspecified organism Laterality: left Lung location: upper lobe of lung Qualified Code(s): J18.9 - Pneumonia, unspecified organism Condition: Stable Discharge Date/Time: 03/27/21 02:14
[2021-03-26] MEDS ORDERED: IPRATROPIUM/ALBUTEROL 3 ML NEB INH STA (20:35)
[2021-03-26] MEDS ORDERED: methylPREDNISolone SUCCINATE 125 MG/2 ML VIAL IVP STA (20:35)
[2021-03-26 20:52] LABS: BASOPHILS # (AUTO) 0.1 10^3/uL (0.0-0.1); BASOPHILS % (AUTO) 0.4 %; EOSINOPHILS # (AUTO) 0.2 10^3/uL (0.0-0.7); EOSINOPHILS % (AUTO) 0.9 %; HCT - HEMATOCRIT 43.8 % (42.0-52.0); HGB - HEMOGLOBIN 14.7 g/dL (14.0-18.0); LYMPHOCYTES # (AUTO) 1.7 10^3/uL (1.5-3.5); LYMPHOCYTES % (AUTO) 7.1 %; MEAN CORPUSCULAR HEMOGLOBIN 31.7 pg (27.0-31.0); MEAN CORPUSCULAR HGB CONC 33.6 g/dL (32.0-36.0); MEAN CORPUSCULAR VOLUME 94.4 fL (80.0-94.0); MEAN PLATELET VOLUME 9.2 fL (7.4-11.4); MONOCYTES # (AUTO) 1.3 10^3/uL (0.0-1.0); MONOCYTES % (AUTO) 5.3 %; NEUTROPHILS # (AUTO) 20.1 10^3/uL (1.5-6.6); NEUTROPHILS % (AUTO) 84.2 %; PLT - PLATELET COUNT 520 10^3/uL (130-450); RED BLOOD COUNT 4.64 10^6/uL (4.70-6.10); RED CELL DISTRIBUTION WIDTH 14.5 % (12.0-15.0); WHITE BLOOD COUNT 23.9 x10^3/uL (4.8-10.8)
[2021-03-26] MEDS ORDERED: ALBUTEROL NEB 2.5 MG/3 ML INH STA (20:52)
[2021-03-26 20:58] LABS: CALCIUM 8.4 mg/dL (8.5-10.3); CREATININE 0.8 mg/dL (0.6-1.2); POTASSIUM 3.4 mmol/L (3.5-5.0)
[2021-03-27] MEDS ORDERED: PIPERACILLIN/TAZOBACTAM 3.375 GM in SODIUM CHLORIDE 0.9% MINIBAG 100 ML IV STA (01:40)
[2021-03-27] MEDS ORDERED: ZOLPIDEM 5 MG TABLET PO PRN (01:45)
[2021-03-27 01:46] LABS: MUDS CUTOFF CONCENTRATIONS CUTOFF CONC BELOW:
[2021-03-27] MEDS ORDERED: ONDANSETRON 4 MG/2 ML VIAL IVP PRN (01:47)
[2021-03-27] MEDS ORDERED: SODIUM CHLORIDE FLUSH 0.9% 10 ML SYRINGE IVP PRN (01:47)
[2021-03-27] MEDS ORDERED: HYDROcod/ACETAM 5/325 MG TABLET PO PRN (01:47)
[2021-03-27 01:57] LABS: AMPHETAMINE SCREEN,URINE NEGATIVE (NEGATIVE); BARBITURATE SCREEN,UR NEGATIVE (NEGATIVE); BENZODIAZEPINES SCREEN, URINE NEGATIVE (NEGATIVE); COCAINE SCREEN URINE NEGATIVE (NEGATIVE); METHADONE SCREEN, URINE NEGATIVE (NEGATIVE); METHAMPHETAMINES SCREEN, URINE NEGATIVE (NEGATIVE); OPIATE SCREEN, URINE NEGATIVE (NEGATIVE); OXYCODONE SCREEN, URINE NEGATIVE (NEGATIVE); PROPOXYPHENE SCREEN, URINE NEGATIVE (NEGATIVE); THC CANNABINOID SCREEN, URINE POSITIVE (NEGATIVE); TRICYCLIC ANTIDEPRESSANT,URINE NEGATIVE (NEGATIVE)
[2021-03-27] MEDS ORDERED: POTASSIUM CHLORIDE 20 MEQ TABLET PO ONE (02:23)
--- NOTE | 2021-03-27 02:28 | HISTORY & PHYSICAL EXAMINATION ---
History and Physical - History and Physical Chief complaint: Cough and left-sided chest pain Source of history: ER signout, patient, medical record review History of present illness: The patient is a 56-year-old white male with past medical history of COPD however no oxygen dependence and no recent history of steroid use. He is compliant with his inhalers and he quit smoking more than 15 years ago. Sees a food science technician regularly. He was vaccinated for Covid several months ago. Developed left-sided chest discomfort about a week ago and was seen in the ER on March 20, 2021. Conclusion of the ER work-up was left upper lobe pneumonia, pleuritic chest pain and gastritis in the setting of NSAID use for pain. The patient at that time had no oxygen requirement, was hemodynamically stable, although notably had white blood cell count at 26. Covid test was negative. He was felt stable to receive IV antibiotic during the ER stay and subsequently continue oral antibiotics/outpatient treatment. He was discharged with Zithromax and Augmentin prescriptions and received sucralfate for gastritis. He took the medications as prescribed but regardless continued with worsening symptoms. He felt chest congestion, had cough but could not expectorate. Continued with worsening left-sided chest pain, mostly when he coughed. [place] weak and ill in general, had sweats but no fever. In the past several days he could no longer smoke marijuana as he felt unwell. He described weight loss due to decreased oral intake. When he smokes marijuana his taste sensation changes and since he stopped smoking he feels strong smell and taste of all foods, most everything would make him nauseous therefore he significantly reduce his oral intake. Even before current illness he was thin. He presented back to the ER overnight on March 26 to March 27. He had n ormal oxygen saturation however was seen with increased work of breathing with respiratory rate in the high 20s/low 30s. Temperature was 37 Celsius. Patient was noted tachycardic with heart rate above 90. Repeat chest x-ray showed worsening left upper lobe infiltrate consistent with worsening pneumonia. Cardiac work-up was negative including troponin and BNP. Covid test pending. White blood cell count was elevated at 23.9, lactic acid however was normal. Past medical history: COPD/no history of oxygen dependence/ Compliant with inhalers, sees a food science technician regularly History of spontaneous pneumothorax remotely Benign prostatic hypertrophy Outpatient medications: Albuterol Sulfate [Proair Hfa Inhaler] 1 - 2 puffs IH Q4HR PRN 03/20/21 Amox/Clav 875/125 [Augmentin] 1 each PO Q12H #20 tablet 03/20/21 Azithromycin [Zithromax] 250 mg PO DAILY #4 tablet 03/20/21 Fluticasone/Salmeterol [Advair 500-50 Diskus] 1 puffs IH BID 03/20/21 Ipratropium [place] 1 spray NS DAILY 03/20/21 Sucralfate [Carafate] 1 gm PO ACHS #60 tablet 03/20/21 Tamsulosin [Flomax] 0.4 mg PO DAILY 03/20/21 Zolpidem [Ambien] 0 mg PO HS PRN 03/20/21 Allergies: No known drug allergies Family history: Patient reports no family history of lung disease. Social history and functional status: The patient is a functional adult, lives with his . He has history of heavy cigarette smoking, used to smoke 2 packs/day however when he was diagnosed with COPD he quit which was about 15 years ago. Since then he "only" smokes cannabinoid. CODE STATUS: Full code Review of symptoms: 12 point review done, pertinent positives and negatives listed above at history present illness, there was no additional positive. Physical exam: Vital Signs - 24 hr 03/26/21 03/26/21 03/26/21 20:23 20:49 20:55 Temperature 36.3 C L Heart Rate 96 89 91 Respiratory 28 H 18 28 H Rate Blood Pressure 126/69 O2 Saturation 96 98 03/26/21 03/26/21 03/26/21 21:06 22:16 22:38 Temperature Heart Rate 84 102 H 83 Respiratory 18 24 22 Rate Blood Pressure 116/71 113/73 O2 Saturation 94 94 03/27/21 01:41 Temperature 37.0 C Heart Rate 84 Respiratory 17 Rate Blood Pressure O2 Saturation 94 Oxygen O2 Source Room air General: Well-developed acutely ill-appearing male with increased work of breathing/increased respiratory rate, gets pale and sweats on minimal activity such as sitting up in bed HEENT: Dry oral mucosa, ridged tongue Respiratory: Increased work of breathing with respiratory rate in the low 30s, decreased air movement above all lung palacios without wheezing, fine crackles posteriorly CVS: S1, S2, regular, no murmur rub or gallop. Abdomen: Benign abdomen, bowel tones present, nontender, nondistended. Neurologic: Alert, oriented; no focal lateralizing sign. Psych: Cooperative. Lymph: No edema. Skin: Pallor, diaphoresis Musculoskeltal:Temporal wasting, visible bones, no fat pads Diagnostic work-up: Laboratory Tests 03/26/21 03/26/21 03/26/21 20:30 20:30 20:30 WBC 23.9 H RBC 4.64 L Hgb 14.7 Hct 43.8 MCV 94.4 H MCH 31.7 H MCHC 33.6 RDW 14.5 Plt Count 520 H MPV 9.2 Neut # (Auto) 20.1 H Lymph # (Auto) 1.7 [place] # (Auto) 1.3 H Eos # (Auto) 0.2 Baso # (Auto) 0.1 Absolute Nucleated RBC 0.00 Nucleated RBC % 0.0 Sodium 135 Potassium 3.4 L Chloride 96 L Carbon Dioxide 26 Anion Gap 13.0 BUN 16 Creatinine 0.8 Estimated GFR (MDRD) 100 Glucose 104 H Lactic Acid Calcium 8.4 L Troponin I High Sens 7.4 B-Natriuretic Peptide Urine Opiates Screen Ur Oxycodone Screen Urine Methadone Screen Ur Propoxyphene Screen Ur Barbiturates Screen Ur Tricyclics Screen Ur Phencyclidine Scrn Ur Amphetamine Screen U Methamphetamines Scrn U Benzodiazepines Scrn Urine Cocaine Screen U Cannabinoids Screen 03/26/21 03/26/21 03/27/21 20:30 21:43 00:15 WBC RBC Hgb Hct MCV MCH MCHC RDW Plt Count MPV Neut # (Auto) Lymph # (Auto) [place] # (Auto) Eos # (Auto) Baso # (Auto) Absolute Nucleated RBC Nucleated RBC % Sodium Potassium Chloride Carbon Dioxide Anion Gap BUN Creatinine Estimated GFR (MDRD) Glucose Lactic Acid 1.0 Calcium Troponin I High Sens B-Natriuretic Peptide 67 Urine Opiates Screen NEGATIVE Ur Oxycodone Screen NEGATIVE Urine Methadone Screen NEGATIVE Ur Propoxyphene Screen NEGATIVE Ur Barbiturates Screen NEGATIVE Ur Tricyclics Screen NEGATIVE Ur Phencyclidine Scrn NEGATIVE Ur Amphetamine Screen NEGATIVE U Methamphetamines Scrn NEGATIVE U Benzodiazepines Scrn NEGATIVE Urine Cocaine Screen NEGATIVE U Cannabinoids Screen POSITIVE H Imaging reviewed per electronic medical record Assessment and plan: Active issues/diagnoses Sepsis secondary to pneumonia, meets criteria for sepsis based on increased respiratory rate, heart rate above 90 and elevated white blood cell count Worsening left upper lobe pneumonia Failed outpatient treatment Smoking marijuana/cannabinoid use History of COPD with no history of oxygen requirement, on exam poor air movement/COPD exacerbation Weight loss/malnutrition Hypokalemia Recently treated gastritis Clinically appeared dehydrated Plan and orders: Admitted as inpatient Continue antibiotic treatment on Zosyn Covid test pending; Blood cultures, MRSA screen Bronchodilator, inhaled steroid Oral prednisone plus GI prophylaxis Cessation of cannabinoid discussed IV hydration and potassium replacement DVT prophylaxis with decreased dose of Lovenox due to high bleeding risk in the setting of decreased weight and malnutrition 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 Time: 65 minutes
[2021-03-27] MEDS ORDERED: ALBUTEROL NEB 2.5 MG/3 ML INH PRN (02:35)
[2021-03-27 02:42] LABS: B. PARAPERTUSSIS- RESP PCR PAN NOT DETECTED; B. PERTUSSIS- RESP PCR PANEL NOT DETECTED; C. PNEUMONIAE- RESP PCR PANEL NOT DETECTED; CORONAVIRUS 229E-RESP PCR NOT DETECTED; CORONAVIRUS HKU1-RESP PCR NOT DETECTED; CORONAVIRUS NL63-RESP PCR NOT DETECTED; CORONAVIRUS OC43-RESP PCR NOT DETECTED; HUMAN METAPNEUMOVIRUS NOT DETECTED; INFLUENZA A- RESP PCR PANEL NOT DETECTED; INFLUENZA B - RESP PCR PANEL NOT DETECTED; M. PNEUMONIAE- RESP PCR PANEL NOT DETECTED; PARAINFLUENZA VIRUS 1 NOT DETECTED; PARAINFLUENZA VIRUS 2 NOT DETECTED; PARAINFLUENZA VIRUS 3 NOT DETECTED; PARAINFLUENZA VIRUS 4 NOT DETECTED; RHINOVIRUS/ENTEROVIRUS NOT DETECTED; RSV- RESP PCR PANEL NOT DETECTED; SARS-CoV-2 -RESP PCR PANEL NOT DETECTED
[2021-03-27] MEDS: NS W/40 MEQ KCL 1,000 ML IV SCH ×2 (03:19→13:45)
[2021-03-27] MEDS: PANTOPRAZOLE 40 MG TABLET PO SCH (06:49)
[2021-03-27] MEDS: SUCRALFATE 1 GM/10 ML UDC PO SCH ×4 (06:49→21:00)
[2021-03-27] MEDS: FORMOTEROL FUMARATE NEB 20 MCG/2 ML INH SCH ×2 (07:16→20:32)
[2021-03-27] MEDS: IPRATROPIUM/ALBUTEROL 3 ML NEB INH SCH ×4 (07:16→20:32)
[2021-03-27] MEDS: BUDESONIDE 0.5 MG/2 ML NEB INH SCH ×2 (07:16→20:32)
[2021-03-27] MEDS: ENOXAPARIN 30 MG/0.3 ML SYRINGE SUBQ SCH (08:37)
[2021-03-27] MEDS: predniSONE 20 MG TABLET PO SCH (08:38)
[2021-03-27] MEDS: TAMSULOSIN 0.4 MG CAPSULE PO SCH (08:38)
[2021-03-27] MEDS: guaiFENesin 600 MG TABLET PO SCH (08:39)
[2021-03-27] MEDS: SODIUM CHLORIDE FLUSH 0.9% 10 ML SYRINGE IVP SCH ×2 (08:40→17:27)
--- NOTE | 2021-03-27 08:46 | PHARMACY PROGRESS NOTE ---
- Best Possible Medication History Admit Date and Time: 03/27/21 0147 Processed by: Nursing Medication History completed: Yes Patient Interview: Completed Secondary Source(s): Pharmacy records, Insurance records As the person ultimately responsible for medication therapy, providers are able to order a medication from an existing home medication list in [facility] via the "Reconcile Routine" prior to Confirmation of that medication by patient support partner. Such practice is discouraged except when the physician, in their clinical judgment, deems that a medical need exists for a medication without regard to previous use.
[2021-03-27] MEDS ORDERED: ENOXAPARIN 40 MG/0.4 ML SYRINGE SUBQ SCH ×2 (09:00)
[2021-03-27] MEDS: PIPERACILLIN/TAZOBACTAM 3.375 GM in SODIUM CHLORIDE 0.9% MINIBAG 100 ML IV SCH ×2 (09:34→17:25)
--- NOTE | 2021-03-27 13:10 | XRAY Report ---
PROCEDURE: Chest 2 View X-Ray INDICATIONS: dyspnea TECHNIQUE: 2 views of the chest. COMPARISON: Chest radiographs 03/20/2021. FINDINGS: Surgical changes and devices: None. Lungs and pleura: No pleural effusions or pneumothorax. Previously seen opacities in the left upper lobe have progressed, now involving the lingula. The right lung is clear. The lungs are hyperexpande d, which can be seen in setting of COPD. Mediastinum: Mediastinal contours are normal. Heart size is normal. Bones and chest wall: No suspicious bony abnormalities. Soft tissues appear unremarkable. IMPRESSION: 1. Worsening left upper lobe and lingular airspace opacities. 2. COPD. Preliminary findings were discussed with the emergency department physician, Dr. Solano, on the night the study was performed, and this report is being submitted later secondary to system downtime. Reviewed by: Ty Holman MD on 03/27/2021 1:09 PM PDT Approved by: Ty Holman MD on 03/27/2021 1:09 PM PDT Station ID: [id number]
[2021-03-27] MEDS: guaiFENesin/DEXTROMETHORPHAN 10 ML UDC PO PRN (21:00)
[2021-03-27] MEDS: ACETAMINOPHEN 325 MG TABLET PO PRN (21:00)
[2021-03-28] MEDS: PIPERACILLIN/TAZOBACTAM 3.375 GM in SODIUM CHLORIDE 0.9% MINIBAG 100 ML IV SCH ×3 (01:11→16:40)
[2021-03-28] MEDS: SODIUM CHLORIDE FLUSH 0.9% 10 ML SYRINGE IVP SCH ×3 (01:12→16:41)
[2021-03-28 05:38] LABS: BASOPHILS # (AUTO) 0.1 10^3/uL (0.0-0.1); BASOPHILS % (AUTO) 0.3 %; EOSINOPHILS % (AUTO) 0.2 %; HGB - HEMOGLOBIN 12.8 g/dL (14.0-18.0); LYMPHOCYTES # (AUTO) 1.7 10^3/uL (1.5-3.5); LYMPHOCYTES % (AUTO) 9.1 %; MEAN CORPUSCULAR HEMOGLOBIN 31.8 pg (27.0-31.0); MEAN CORPUSCULAR HGB CONC 32.8 g/dL (32.0-36.0); MEAN CORPUSCULAR VOLUME 96.8 fL (80.0-94.0); MEAN PLATELET VOLUME 9.2 fL (7.4-11.4); MONOCYTES # (AUTO) 0.9 10^3/uL (0.0-1.0); MONOCYTES % (AUTO) 4.6 %; NEUTROPHILS % (AUTO) 83.8 %; PLT - PLATELET COUNT 583 10^3/uL (130-450); RED BLOOD COUNT 4.03 10^6/uL (4.70-6.10); RED CELL DISTRIBUTION WIDTH 14.6 % (12.0-15.0); WHITE BLOOD COUNT 19.1 x10^3/uL (4.8-10.8)
[2021-03-28 05:43] LABS: CALCIUM 8.3 mg/dL (8.5-10.3); CREATININE 0.8 mg/dL (0.6-1.2); POTASSIUM 3.5 mmol/L (3.5-5.0)
[2021-03-28] MEDS: SUCRALFATE 1 GM/10 ML UDC PO SCH ×4 (06:27→20:34)
[2021-03-28] MEDS: PANTOPRAZOLE 40 MG TABLET PO SCH (06:27)
[2021-03-28] MEDS: BUDESONIDE 0.5 MG/2 ML NEB INH SCH ×2 (07:06→20:52)
[2021-03-28] MEDS: IPRATROPIUM/ALBUTEROL 3 ML NEB INH SCH ×4 (07:07→20:52)
[2021-03-28] MEDS: FORMOTEROL FUMARATE NEB 20 MCG/2 ML INH SCH ×2 (07:07→20:52)
[2021-03-28] MEDS: predniSONE 20 MG TABLET PO SCH (07:53)
[2021-03-28] MEDS: guaiFENesin 600 MG TABLET PO SCH (07:54)
[2021-03-28] MEDS: SACCHAROMYCES BOULARDII 250 MG CAPSULE PO SCH ×2 (07:54→16:40)
[2021-03-28] MEDS: TAMSULOSIN 0.4 MG CAPSULE PO SCH (08:00)
[2021-03-28] MEDS: ENOXAPARIN 30 MG/0.3 ML SYRINGE SUBQ SCH (08:01)
[2021-03-28] MEDS: ACETAMINOPHEN 325 MG TABLET PO PRN ×2 (14:36→20:34)
[2021-03-28] MEDS: guaiFENesin/DEXTROMETHORPHAN 10 ML UDC PO PRN (15:55)
--- NOTE | 2021-03-28 19:14 | PROVIDER PROGRESS NOTE ---
Progress Note March 28, 2021 7:10 PM Very sleepy. No appetite. But awakens easily. Walking in the room. Eating about 75% of his food. Low-grade temps to 37. 94% on room air. He tells me he is just exhausted and wiped out. Medications: Tylenol, [place], albuterol, DuoNeb, Pulmicort, Lovenox, Perforomist, Robitussin-DM, Mucinex, Zofran, Zosyn, Deltasone, Florastor for occasional incontinence of urine, Carafate Temperature is 37. Pulse 88. Blood pressure 101/69. Respirations 18. 94% on room air He was asleep this morning, asleep this afternoon. Asleep in the evening. But awakens easily. Alert, oriented speech is lucid and appropriate in context neck Neck is supple. Regular rate and rhythm Lungs have diminished breath sounds, slow, shallow unlabored respiration, no increased respiratory effort. Abdomen is soft, nontender. No masses. Extremities are thin, muscle wasting, no edema BMP is normal. White cell count has improved to 19,000 from 23,000. Hemoglobin 12.8, hematocrit 39, platelets 583 Urine tox being positive for cannabinoids Assessment/plan Sepsis secondary to pneumonia. Criteria were met on admission and those have resolved. Pneumonia. Worsening upper lobe left pneumonia in spite of outpatient antibiotics. Considered a failure of outpatient treatment. Chest x-ray was reviewed. He may be candidate for CT chest if he does not continue to improve. Acute protein calorie malnutrition noted on exam with severe muscle wasting, cachexia. Will ask nutrition service consultation tomorrow. They are not avai lable on the weekend. History of COPD. Currently on bronchodilators. There is no exacerbation.
[2021-03-29] MEDS: guaiFENesin/DEXTROMETHORPHAN 10 ML UDC PO PRN
[2021-03-29] MEDS: PIPERACILLIN/TAZOBACTAM 3.375 GM in SODIUM CHLORIDE 0.9% MINIBAG 100 ML IV SCH ×3 (01:05→16:16)
[2021-03-29] MEDS: SODIUM CHLORIDE FLUSH 0.9% 10 ML SYRINGE IVP SCH ×4 (01:06→23:57)
[2021-03-29 04:51] LABS: BASOPHILS % (AUTO) 0.1 %; EOSINOPHILS # (AUTO) 0.1 10^3/uL (0.0-0.7); EOSINOPHILS % (AUTO) 0.3 %; HCT - HEMATOCRIT 40.2 % (42.0-52.0); HGB - HEMOGLOBIN 13.5 g/dL (14.0-18.0); LYMPHOCYTES # (AUTO) 2.3 10^3/uL (1.5-3.5); LYMPHOCYTES % (AUTO) 14.1 %; MEAN CORPUSCULAR HEMOGLOBIN 31.8 pg (27.0-31.0); MEAN CORPUSCULAR HGB CONC 33.6 g/dL (32.0-36.0); MEAN CORPUSCULAR VOLUME 94.8 fL (80.0-94.0); MEAN PLATELET VOLUME 9.4 fL (7.4-11.4); MONOCYTES # (AUTO) 1.1 10^3/uL (0.0-1.0); MONOCYTES % (AUTO) 6.9 %; NEUTROPHILS # (AUTO) 12.8 10^3/uL (1.5-6.6); NEUTROPHILS % (AUTO) 77.8 %; PLT - PLATELET COUNT 685 10^3/uL (130-450); RED BLOOD COUNT 4.24 10^6/uL (4.70-6.10); RED CELL DISTRIBUTION WIDTH 14.6 % (12.0-15.0); WHITE BLOOD COUNT 16.5 x10^3/uL (4.8-10.8)
[2021-03-29 04:58] LABS: CALCIUM 8.4 mg/dL (8.5-10.3); CREATININE 0.8 mg/dL (0.6-1.2); POTASSIUM 4.2 mmol/L (3.5-5.0)
[2021-03-29] MEDS: SUCRALFATE 1 GM/10 ML UDC PO SCH ×4 (06:17→20:48)
[2021-03-29] MEDS: PANTOPRAZOLE 40 MG TABLET PO SCH (06:17)
[2021-03-29] MEDS: ACETAMINOPHEN 325 MG TABLET PO PRN ×2 (06:18→14:53)
[2021-03-29] MEDS: BUDESONIDE 0.5 MG/2 ML NEB INH SCH ×2 (07:57→22:23)
[2021-03-29] MEDS: IPRATROPIUM/ALBUTEROL 3 ML NEB INH SCH ×4 (07:57→22:23)
[2021-03-29] MEDS: FORMOTEROL FUMARATE NEB 20 MCG/2 ML INH SCH ×2 (07:57→22:23)
[2021-03-29] MEDS: predniSONE 20 MG TABLET PO SCH (08:31)
[2021-03-29] MEDS: ENOXAPARIN 30 MG/0.3 ML SYRINGE SUBQ SCH (08:31)
[2021-03-29] MEDS: SACCHAROMYCES BOULARDII 250 MG CAPSULE PO SCH ×2 (08:31→16:18)
[2021-03-29] MEDS: TAMSULOSIN 0.4 MG CAPSULE PO SCH (08:31)
[2021-03-29] MEDS: guaiFENesin 600 MG TABLET PO SCH (08:31)
[2021-03-29] MEDS ORDERED: IOPAMIDOL-300 100 ML VIAL ONE (11:22)
--- NOTE | 2021-03-29 12:22 | PROVIDER PROGRESS NOTE ---
Subjective - Prog Note Date Prog Note Date: 03/29/21 Prog Note Time: 12:20 - Subjective Pt reports feeling: Improved (Reports minimal improvement) Subjective: Patient slept well overnight. He says he still feels a little weak, but his shortness of breath is a bit better. Comfortably eating food after returning from CT imaging. Has no additional needs at this time. Current Medications - Current Medications Current Medications: Active Medications Acetaminophen (Acetaminophen 325 Mg Tablet) 650 mg PO Q4HR PRN PRN Reason: Pain 1 to 4 Last Admin: 03/29/21 06:18 Dose: 650 mg Documented by: Hydrocodone Bitart/Acetaminophen (Hydrocod/Acetam 5/325 Mg Tablet) 1 tab PO Q4HR PRN PRN Reason: Pain 5 to 7 Last Admin: 03/28/21 07:51 Dose: 1 tab Documented by: Albuterol (Albuterol Neb 2.5 Mg/3 Ml) 2.5 mg INH Q4H PRN PRN Reason: Wheezing Albuterol/Ipratropium (Ipratropium/Albuterol 3 Ml Neb) 3 ml INH RTQID DIANA Last Admin: 03/29/21 11:27 Dose: 3 ml Documented by: Budesonide (Budesonide 0.5 Mg/2 Ml Neb) 0.5 mg INH RTBID [facility] Last Admin: 03/29/21 07:57 Dose: 0.5 mg Documented by: Enoxaparin Sodium (Enoxaparin 30 Mg/0.3 Ml Syringe) 30 mg SUBQ DAILY [facility] Last Admin: 03/29/21 08:31 Dose: 30 mg Documented by: Formoterol Fumarate (Formoterol Fumarate Neb 20 Mcg/2 Ml) 20 mcg INH RTBID DIANA Last Admin: 03/29/21 07:57 Dose: 20 mcg Documented by: Guaifenesin (Guaifenesin 600 Mg Tablet) 600 mg PO DAILY [facility] Last Admin: 03/29/21 08:31 Dose: 600 mg Documented by: Guaifenesin (Guaifenesin/Dextromethorphan 10 Ml Udc) 10 ml PO Q6HR PRN PRN Reason: Cough Last Admin: 03/29/21 00:00 Dose: 10 ml Documented by: Piperacillin Sod/Tazobactam (Sod 3.375 gm/ Sodium Chloride) 100 mls @ 25 mls/hr IV Q8H [facility] Last Admin: 03/29/21 08:31 Dose: 25 mls/hr Documented by: Ondansetron HCl (Ondansetron 4 Mg/2 Ml Vial) 4 mg IVP Q6HR PRN PRN Reason: Nausea / Vomiting Pantoprazole Sodium (Pantoprazole 40 Mg Tablet) 40 mg PO QDAC [facility] Last Admin: 03/29/21 06:17 Dose: 40 mg Documented by: Prednisone (Prednisone 20 Mg Tablet) 20 mg PO DAILYWM [facility] Last Admin: 03/29/21 08:31 Dose: 20 mg Documented by: Saccharomyces Boulardii (Saccharomyces Boulardii 250 Mg Capsule) 250 mg PO BIDWM [facility] Last Admin: 03/29/21 08:31 Dose: 250 mg Documented by: Sodium Chloride (Sodium Chloride Flush 0.9% 10 Ml Syringe) 10 ml IVP PRN PRN PRN Reason: NEEDED PER PROVIDER ORDERS Sodium Chloride (Sodium Chloride Flush 0.9% 10 Ml Syringe) 10 ml IVP 0100,0900,1700 [facility] Last Admin: 03/29/21 08:31 Dose: 10 ml Documented by: Sucralfate (Sucralfate 1 Gm/10 Ml Udc) 1 gm PO ACHS [facility] Last Admin: 03/29/21 12:06 Dose: 1 gm Documented by: Tamsulosin HCl (Tamsulosin 0.4 Mg Capsule) 0.4 mg PO DAILY [facility] Last Admin: 03/29/21 08:31 Dose: 0.4 mg Documented by: Zolpidem Tartrate (Zolpidem 5 Mg Tablet) 5 mg PO HS PRN PRN Reason: Insomnia Albuterol Sulfate [Proair Hfa Inhaler] 1 - 2 puffs IH Q4HR PRN 03/20/21 Fluticasone/Salmeterol [Advair 500-50 Diskus] 1 puffs IH BID 03/20/21 Ipratropium Napoleon 1 spray NS DAILY 03/20/21 Tamsulosin [Flomax] 0.4 mg PO DAILY 03/20/21 Zolpidem [Ambien] 0 mg PO HS PRN 03/20/21 Objective - Vital Signs/Intake & Output Vital Signs: Vital Signs x48h Temp Pulse Pulse Resp BP Pulse Ox 03/29/21 11:27 96 12 03/29/21 08:00 36.6 C 105 H 18 125/73 95 03/29/21 07:58 91 12 Intake & Output: Intake & Output 03/26/21 03/27/21 03/28/21 03/29/21 23:59 23:59 23:59 23:59 Intake Total 4315 2152 660 Output Total 650 Balance 3665 2152 660 - Objective General Appearance: positive: No acute distress, Other (Thin and barrel chested) Eyes Bilateral: positive: PERRL, EOMI Neck: positive: No JVD, Trachea midline Respiratory: positive: Chest non-tender, No respiratory distress, Other (Breathsounds diminished bilaterally, slow shallow breathing, speaks in full sentences) Cardiovascular: positive: Regular rate & rhythm, No murmur, No gallop Peripheral Pulses: 1+ Radial (R), 1+ Radial (L), 1+ Posterior tibialis (R), 1+ Posterior tibialis (L) Extremities: positive: Non-tender, Nml appearance, No pedal edema. negative: Calf tenderness, Chucky's sign/cords Neurologic/Psychiatric: positive: Oriented x3 (Pleasant and answers questions appropriately), Mood/affect nml - Lab Results Fish Bones: 03/29/21 04:32 03/29/21 04:32 Other Labs: WBC 16.5 x10^3/uL (4.8-10.8) H 03/29/21 04:32 RBC 4.24 10^6/uL (4.70-6.10) L 03/29/21 04:32 Hgb 13.5 g/dL (14.0-18.0) L 03/29/21 04:32 Hct 40.2 % (42.0-52.0) L 03/29/21 04:32 MCV 94.8 fL (80.0-94.0) H 03/29/21 04:32 MCH 31.8 pg (27.0-31.0) H 03/29/21 04:32 MCHC 33.6 g/dL (32.0-36.0) 03/29/21 04:32 RDW 14.6 % (12.0-15.0) 03/29/21 04:32 Plt Count 685 10^3/uL (130-450) H 03/29/21 04:32 MPV 9.4 fL (7.4-11.4) 03/29/21 04:32 Neut # (Auto) 12.8 10^3/uL (1.5-6.6) H 03/29/21 04:32 Lymph # (Auto) 2.3 10^3/uL (1.5-3.5) 03/29/21 04:32 [place] # (Auto) 1.1 10^3/uL (0.0-1.0) H 03/29/21 04:32 Eos # (Auto) 0.1 10^3/uL (0.0-0.7) 03/29/21 04:32 Baso # (Auto) 0.0 10^3/uL (0.0-0.1) 03/29/21 04:32 Absolute Nucleated RBC 0.00 x10^3/uL 03/29/21 04:32 Nucleated RBC % 0.0 /100WBC 03/29/21 04:32 Sodium 139 mmol/L (135-145) 03/29/21 04:32 Potassium 4.2 mmol/L (3.5-5.0) 03/29/21 04:32 Chloride 103 mmol/L (101-111) 03/29/21 04:32 Carbon Dioxide 26 mmol/L (21-32) 03/29/21 04:32 Anion Gap 10.0 (6-13) 03/29/21 04:32 BUN 13 mg/dL (6-20) 03/29/21 04:32 Creatinine 0.8 mg/dL (0.6-1.2) 03/29/21 04:32 Estimated GFR (MDRD) 100 (>89) 03/29/21 04:32 Glucose 93 mg/dL (70-100) 03/29/21 04:32 Lactic Acid 1.0 mmol/L (0.5-2.2) 03/26/21 21:43 Calcium 8.4 mg/dL (8.5-10.3) L 03/29/21 04:32 Troponin I High Sens 7.4 ng/L (2.3-19.7) 03/26/21 20:30 B-Natriuretic Peptide 67 pg/mL (5-100) 03/26/21 20:30 Total Protein 7.0 g/dL (6.7-8.2) 03/29/21 04:32 Albumin 2.5 g/dL (3.2-5.5) L 03/29/21 04:32 Nasal Adenovirus (PCR) NOT DETECTED 03/27/21 01:38 Nasal B. parapertussis DNA (PCR) NOT DETECTED 03/27/21 01:38 Nasal Coronavir 229E PCR NOT DETECTED 03/27/21 01:38 Nasal Coronavir HKU1 PCR NOT DETECTED 03/27/21 01:38 Nasal Coronavir NL63 PCR NOT DETECTED 03/27/21 01:38 Nasal Coronavir OC43 PCR NOT DETECTED 03/27/21 01:38 Nasal Enterovir/Rhinovir PCR NOT DETECTED 03/27/21 01:38 Nasal Influenza B PCR NOT DETECTED 03/27/21 01:38 Nasal Influenza A PCR NOT DETECTED 03/27/21 01:38 Nasal Parainfluen 1 PCR NOT DETECTED 03/27/21 01:38 Nasal Parainfluen 2 PCR NOT DETECTED 03/27/21 01:38 Nasal Parainfluen 3 PCR NOT DETECTED 03/27/21 01:38 Nasal Parainfluen 4 PCR NOT DETECTED 03/27/21 01:38 Nasal RSV (PCR) NOT DETECTED 03/27/21 01:38 Nasal Screen MRSA (PCR) NEGATIVE (NEGATIVE) 03/27/21 04:00 Nasal B.pertussis DNA PCR NOT DETECTED 03/27/21 01:38 Nasal C.pneumoniae (PCR) NOT DETECTED 03/27/21 01:38 Rohith Human Metapneumo PCR NOT DETECTED 03/27/21 01:38 Nasal M.pneumoniae (PCR) NOT DETECTED 03/27/21 01:38 Nasal SARS-CoV-2 (PCR) NOT DETECTED 03/27/21 01:38 Urine Opiates Screen NEGATIVE (NEGATIVE) 03/27/21 00:15 Ur Oxycodone Screen NEGATIVE (NEGATIVE) 03/27/21 00:15 Urine Methadone Screen NEGATIVE (NEGATIVE) 03/27/21 00:15 Ur Propoxyphene Screen NEGATIVE (NEGATIVE) 03/27/21 00:15 Ur Barbiturates Screen NEGATIVE (NEGATIVE) 03/27/21 00:15 Ur Tricyclics Screen NEGATIVE (NEGATIVE) 03/27/21 00:15 Ur Phencyclidine Scrn NEGATIVE (NEGATIVE) 03/27/21 00:15 Ur Amphetamine Screen NEGATIVE (NEGATIVE) 03/27/21 00:15 U Methamphetamines Scrn NEGATIVE (NEGATIVE) 03/27/21 00:15 U Benzodiazepines Scrn NEGATIVE (NEGATIVE) 03/27/21 00:15 Urine Cocaine Screen NEGATIVE (NEGATIVE) 03/27/21 00:15 U Cannabinoids Screen POSITIVE (NEGATIVE) H 03/27/21 00:15 - Diagnostic Imaging Diagnostic Imaging Results: positive: Final report reviewed (No evidence of obstructive pneumonia. Pulmonary infiltrates and pneumonitis in left upper lobe.) Diagnostic Imaging Comments: CT chest COMPARISON: Chest radiograph dated 03/20/2021 and 03/26/2021. FINDINGS: Image quality: Excellent. Lungs and pleura: Advanced centrilobular emphysema is seen. There is biapical scarring with large extensive patchy airspace opacities involving posterior and lateral aspect of left upper lobe and left lingular segment extending to left hilar region and along anterior aspect of the oblique fissure. Thickened interlobular septa throughout left upper lobe is seen No pleural effusions or pneumothorax. Central and peripheral airways are patent and normal in caliber. Mediastinum: Heart size is normal. Small pericardial effusion is seen measures up to 6 mm in thickness. Subcentimeter lymph nodes are seen in mediastinum and left hilar region measures up to 8 mm in size series 3 image 31 and series 3 image 26. Thoracic aorta and central pulmonary arteries are normal in size. Esophagus is normal in caliber. No hiatal hernia. Bones and chest wall: No suspicious bony lesions. No vertebral body compression fractures. No axillary or supraclavicular adenopathy by size criteria. The thyroid is normal in size and there are no incidental findings.. Abdomen: Visualized upper abdominal solid organs appear normal. Upper abdominal bowel loops are normal in caliber. Suggestion of small left renal cysts are seen measures up to 1.4 cm in size in anterior cortex of left kidney. IMPRESSION: 1. Extensive airspace opacities scattered in posterior and lateral aspect of left upper lobe and lingular segment along oblique fissure with associated interlobular septal thickening suggestive of extensive pulmonary infiltrates and pneumonitis in left upper lobe. Follow-up until resolution is recommended to rule out underlying malignant process. 2. Biapical scarring. Advanced centrilobular emphysema. No pleural effusion or pneumothorax. Airway is patent. 3. Borderline enlarged mediastinal and left hilar lymph nodes suggestive of reactive inflammatory nodes. 4. Small pericardial effusion. CLINICAL RECOMMENDATION STATEMENTS: In patients <35 years with an ITN detected on CT, MRI, or extrathyroidal ultrasound, the Committee recommends further evaluation with dedicated thyroid ultrasound if the nodule is ?1 cm and has no suspicious imaging features, and if the patient has normal life expectancy. In patients ?35 years with an ITN detected on CT, MRI, or extrathyroidal ultrasound, the Committee recommends further evaluation with dedicated thyroid ultrasound if the nodule is ?1.5 cm and has no suspicious imaging features, and if the patient has normal life expectancy. (ACR, 2014) ABX Reporting Has patient been on IV antibiotics over the past 48 hours?: Yes Sepsis Event Note (H) - Evaluation Current Stage of Sepsis: Resolved Possible source of Sepsis: positive: Pulmonary - Sepsis Criteria Sepsis Criteria: Recorded Heart Rate greater than 90 bpm, Respiratory: I ncreasing oxygen requirements, WBC count greater than 12,000 or less than 4000 Assessment/Plan - Problem List (1) Pneumonia Impression: Patients symptoms are slowly resolving. WBC count decreased from 19.[address] was ordered for possible obstructive pneumonia due to malignancy. This was negative for malignancy. Plan for patient to finish abx and receive a repeat x ray in one month. Qualifiers: Pneumonia type: due to unspecified organism Laterality: left Lung location: upper lobe of lung Qualified Code(s): J18.9 - Pneumonia, unspecified organism (2) Sepsis Impression: Sepsis has resolved. No longer meets criteria. (3) Protein-calorie malnutrition, moderate Impression: Acute protein calorie malnutrition noted on exam with severe muscle wasting, cachexia. Will follow up with nutrition service. (4) COPD (chronic obstructive pulmonary disease) Impression: History of COPD. CT confirmed advanced centrilobuluar emphysema. Continue bronchodilators. No acute exacerbation at this time. Qualifiers: COPD type: emphysema
--- NOTE | 2021-03-29 12:24 | CT Report ---
PROCEDURE: CHEST W INDICATIONS: consolidaton left lung CONTRAST: IV CONTRAST: Isovue 300 ml: 100 PO CONTRAST: *NO PO CONTRAST TECHNIQUE: After the administration of intravenous contrast, images were acquired from the pulmonary apices to t he posterior costophrenic angles. Multiplanar MIP reformats were acquired. For radiation dose reduc tion, the following was used: automated exposure control, adjustment of mA and/or kV according to pa tient size. COMPARISON: Chest radiograph dated 03/20/2021 and 03/26/2021. FINDINGS: Image quality: Excellent. Lungs and pleura: Advanced centrilobular emphysema is seen. There is biapical scarring with large ext ensive patchy airspace opacities involving posterior and lateral aspect of left upper lobe and left l ingular segment extending to left hilar region and along anterior aspect of the oblique fissure. Thic kened interlobular septa throughout left upper lobe is seen No pleural effusions or pneumothorax. Ce ntral and peripheral airways are patent and normal in caliber. Mediastinum: Heart size is normal. Small pericardial effusion is seen measures up to 6 mm in thickne ss. Subcentimeter lymph nodes are seen in mediastinum and left hilar region measures up to 8 mm in si ze series 3 image 31 and series 3 image 26. Thoracic aorta and central pulmonary arteries are normal in size. Esophagus is normal in caliber. No hiatal hernia. Bones and chest wall: No suspicious bony lesions. No vertebral body compression fractures. No axil debi or supraclavicular adenopathy by size criteria. The thyroid is normal in size and there are no incidental findings.. Abdomen: Visualized upper abdominal solid organs appear normal. Upper abdominal bowel loops are nor mal in caliber. Suggestion of small left renal cysts are seen measures up to 1.4 cm in size in anter ior cortex of left kidney. IMPRESSION: 1. Extensive airspace opacities scattered in posterior and lateral aspect of left upper lobe and ling ular segment along oblique fissure with associated interlobular septal thickening suggestive of exten sive pulmonary infiltrates and pneumonitis in left upper lobe. Follow-up until resolution is recommen ded to rule out underlying malignant process. 2. Biapical scarring. Advanced centrilobular emphysema. No pleural effusion or pneumothorax. Airway i s patent. 3. Borderline enlarged mediastinal and left hilar lymph nodes suggestive of reactive inflammatory nod es. 4. Small pericardial effusion. CLINICAL RECOMMENDATION STATEMENTS: In patients <35 years with an ITN detected on CT, MRI, or extrathyroidal ultrasound, the Committee re commends further evaluation with dedicated thyroid ultrasound if the nodule is ?1 cm and has no suspi cious imaging features, and if the patient has normal life expectancy. In patients ?35 years with an ITN detected on CT, MRI, or extrathyroidal ultrasound, the Committee re commends further evaluation with dedicated thyroid ultrasound if the nodule is ?1.5 cm and has no damari picious imaging features, and if the patient has normal life expectancy. (ACR, 2014) Reviewed by: Hira Shearer MD on 03/29/2021 12:22 PM PDT Approved by: Hira Shearer MD on 03/29/2021 12:22 PM PDT Station ID: [id number]
[2021-03-29 12:57] LABS: ALBUMIN 2.5 g/dL (3.2-5.5)
[2021-03-29] MEDS ORDERED: IOPAMIDOL-300 100 ML VIAL IVP ONE (13:54)
[2021-03-29] MEDS: MULTIVITAMIN W/MINERALS TABLET PO SCH (16:15)
[2021-03-30] MEDS: PIPERACILLIN/TAZOBACTAM 3.375 GM in SODIUM CHLORIDE 0.9% MINIBAG 100 ML IV SCH ×3 (00:19→16:42)
[2021-03-30] MEDS: ACETAMINOPHEN 325 MG TABLET PO PRN ×2 (01:45→22:18)
[2021-03-30 05:33] LABS: BASOPHILS % (AUTO) 0.2 %; EOSINOPHILS % (AUTO) 0.2 %; HCT - HEMATOCRIT 39.2 % (42.0-52.0); HGB - HEMOGLOBIN 13.1 g/dL (14.0-18.0); LYMPHOCYTES # (AUTO) 1.9 10^3/uL (1.5-3.5); LYMPHOCYTES % (AUTO) 12.3 %; MEAN CORPUSCULAR HEMOGLOBIN 31.6 pg (27.0-31.0); MEAN CORPUSCULAR HGB CONC 33.4 g/dL (32.0-36.0); MEAN CORPUSCULAR VOLUME 94.7 fL (80.0-94.0); MEAN PLATELET VOLUME 9.2 fL (7.4-11.4); MONOCYTES # (AUTO) 1.3 10^3/uL (0.0-1.0); MONOCYTES % (AUTO) 8.8 %; NEUTROPHILS # (AUTO) 11.9 10^3/uL (1.5-6.6); NEUTROPHILS % (AUTO) 77.7 %; PLT - PLATELET COUNT 714 10^3/uL (130-450); RED BLOOD COUNT 4.14 10^6/uL (4.70-6.10); RED CELL DISTRIBUTION WIDTH 14.6 % (12.0-15.0); WHITE BLOOD COUNT 15.3 x10^3/uL (4.8-10.8)
[2021-03-30 05:40] LABS: CALCIUM 8.3 mg/dL (8.5-10.3); CREATININE 0.7 mg/dL (0.6-1.2); POTASSIUM 3.7 mmol/L (3.5-5.0)
[2021-03-30] MEDS: PANTOPRAZOLE 40 MG TABLET PO SCH (06:31)
[2021-03-30] MEDS: SUCRALFATE 1 GM/10 ML UDC PO SCH ×4 (06:31→20:50)
[2021-03-30] MEDS: predniSONE 20 MG TABLET PO SCH (09:10)
[2021-03-30] MEDS: MULTIVITAMIN W/MINERALS TABLET PO SCH (09:10)
[2021-03-30] MEDS: TAMSULOSIN 0.4 MG CAPSULE PO SCH (09:11)
[2021-03-30] MEDS: ENOXAPARIN 30 MG/0.3 ML SYRINGE SUBQ SCH (09:11)
[2021-03-30] MEDS: guaiFENesin 600 MG TABLET PO SCH (09:11)
[2021-03-30] MEDS: SODIUM CHLORIDE FLUSH 0.9% 10 ML SYRINGE IVP SCH ×2 (09:11→16:43)
[2021-03-30] MEDS: SACCHAROMYCES BOULARDII 250 MG CAPSULE PO SCH ×2 (09:11→16:47)
[2021-03-30] MEDS: FORMOTEROL FUMARATE NEB 20 MCG/2 ML INH SCH ×2 (10:09→20:31)
[2021-03-30] MEDS: BUDESONIDE 0.5 MG/2 ML NEB INH SCH ×2 (10:09→20:32)
[2021-03-30] MEDS: IPRATROPIUM/ALBUTEROL 3 ML NEB INH SCH ×4 (10:10→20:31)
--- NOTE | 2021-03-30 13:03 | PROVIDER PROGRESS NOTE ---
Assessment/Plan - Problem List (1) Pneumonia Qualifiers: Pneumonia type: due to unspecified organism Laterality: left Lung location: upper lobe of lung Qualified Code(s): J18.9 - Pneumonia, unspecified organism Assessment/Plan: 03/30, pt report he is improving but he still shortness of breath on exertion, and fatigue and tired. pt is slowly improved. his WBC is 15 and CRP is 17. pt is on Zosyn single agent antibiotics, and lower dosage of steroid for pneumonitis as well. will repeat CXR. order blood culture (2) Sepsis Impression: Sepsis has resolved. No longer meets criteria. (3) Protein-calorie malnutrition, moderate Impression: hx of COPD and hx of cigarette smoker, with currently marijuana. Acute protein calorie malnutrition noted on exam with severe muscle wasting, cachexia. Will follow up with nutrition service. (4) COPD (chronic obstructive pulmonary disease) Impression: History of COPD. CT confirmed advanced centrilobuluar emphysema. Continue bron chodilators. No acute exacerbation at this time. - Current Meds Current Meds: Current Medications Generic Name Dose Route Start Last Admin Trade Name Freq PRN Reason Stop Dose Admin Acetaminophen 650 mg 03/27/21 01:47 03/30/21 01:45 Acetaminophen 325 Mg Tablet PO 650 mg Q4HR PRN Administration Pain 1 to 4 Hydrocodone Bitart/Acetaminophen 1 tab 03/27/21 01:47 03/28/21 07:51 Hydrocod/Acetam 5/325 Mg Tablet PO 1 tab Q4HR PRN Administration Pain 5 to 7 Albuterol/Ipratropium 3 ml 03/27/21 07:00 03/30/21 12:30 Ipratropium/Albuterol 3 Ml Neb INH Not Given RTQID DIANA Budesonide 0.5 mg 03/27/21 07:00 03/30/21 10:09 Budesonide 0.5 Mg/2 Ml Neb INH 0.5 mg RTBID DIANA Administration Enoxaparin Sodium 30 mg 03/27/21 09:00 03/30/21 09:11 Enoxaparin 30 Mg/0.3 Ml Syringe SUBQ 30 mg DAILY DIANA Administration Formoterol Fumarate 20 mcg 03/27/21 07:00 03/30/21 10:09 Formoterol Fumarate Neb 20 Mcg/2 Ml INH 20 mcg RTBID DIANA Administration Guaifenesin 600 mg 03/27/21 09:00 03/30/21 09:11 Guaifenesin 600 Mg Tablet PO 600 mg DAILY DIANA Administration Guaifenesin 10 ml 03/27/21 01:44 03/29/21 00:00 Guaifenesin/Dextromethorphan 10 Ml Udc PO 10 ml Q6HR PRN Administration Cough Piperacillin Sod/Tazobactam 100 mls @ 25 mls/hr 03/27/21 09:00 03/30/21 09:11 Sod 3.375 gm/ Sodium Chloride IV 25 mls/hr Q8H DIANA Administration Multivitamins/Minerals 1 tab 03/29/21 15:00 03/30/21 09:10 Multivitamin W/Minerals Tablet PO 1 tab DAILYWM DIANA Administration Pantoprazole Sodium 40 mg 03/27/21 07:00 03/30/21 06:31 Pantoprazole 40 Mg Tablet PO 40 mg QDAC DIANA Administration Prednisone 20 mg 03/27/21 08:00 03/30/21 09:10 Prednisone 20 Mg Tablet PO 20 mg DAILYWM DIANA Administration Saccharomyces Boulardii 250 mg 03/28/21 08:00 03/30/21 09:11 Saccharomyces Boulardii 250 Mg Capsule PO 250 mg BIDWM DIANA Administration Sodium Chloride 10 ml 03/27/21 01:47 03/30/21 00:19 Sodium Chloride Flush 0.9% 10 Ml Syringe IVP 10 ml PRN PRN Administration NEEDED PER PROVIDER ORDERS Sodium Chloride 10 ml 03/27/21 09:00 03/30/21 09:11 Sodium Chloride Flush 0.9% 10 Ml Syringe IVP 10 ml 0100,0900,1700 DIANA Administration Sucralfate 1 gm 03/27/21 07:00 03/30/21 11:31 Sucralfate 1 Gm/10 Ml Udc PO 1 gm ACHS DIANA Administration Tamsulosin HCl 0.4 mg 03/27/21 09:00 03/30/21 09:11 Tamsulosin 0.4 Mg Capsule PO 0.4 mg DAILY DIANA Administration - Lab Result Fish Bone Diagrams: 03/30/21 04:55 03/30/21 04:55 - Additional Planning My Orders: My Active Orders 03/30/21 08:05 Blood Culture [CULTURE, BLOOD #1] [RM] Urgent 03/30/21 08:35 Blood Culture [CULTURE, BLOOD #2] [RM] Urgent 03/31/21 05:00 CRP - C-REACTIVE PROTEIN [CHEM] DAILYLAB 04/01/21 05:00 CRP - C-REACTIVE PROTEIN [CHEM] DAILYLAB 04/02/21 05:00 CRP - C-REACTIVE PROTEIN [CHEM] DAILYLAB 04/03/21 05:00 CRP - C-REACTIVE PROTEIN [CHEM] DAILYLAB 04/04/21 05:00 CRP - C-REACTIVE PROTEIN [CHEM] DAILYLAB Subjective - Subjective Patient Reports: Feeling Better Objective Vital Signs: Vital Signs - 24 hr 03/29/21 03/29/21 03/29/21 15:49 21:12 22:24 Temperature 37.4 C Heart Rate 93 Heart Rate [ 93 93 Brachial] Respiratory 17 20 Rate Blood Pressure 97/57 L 125/78 [Left Brachial artery] O2 Saturation 94 03/30/21 03/30/21 03/30/21 00:00 08:15 10:10 Temperature 37.1 C 37.1 C Heart Rate 91 Heart Rate [ 89 88 Brachial] Respiratory 16 16 16 Rate Blood Pressure 102/60 129/77 [Left Brachial artery] O2 Saturation 93 96 03/30/21 11:16 Temperature 37.1 C Heart Rate Heart Rate [ 109 H Brachial] Respiratory 18 Rate Blood Pressure 125/80 [Left Brachial artery] O2 Saturation 97 Oxygen O2 Source Room air I&O (Last 24 Hrs): Intake and Output Totals x24h 03/28/21 03/29/21 03/30/21 23:59 23:59 23:59 Intake Total 2152 1736 760 Balance 2152 1736 760 General: Alert, Oriented x3, No acute distress HEENT: Atraumatic Neck: Supple Lymphatic: no adenopathy Neuro: Alert, Non Focal, Oriented Times 3 Cardiovascular: Regular rate, Normal S1, Normal S2 Respiratory: Chest non-tender, No respiratory distress Abdomen: Normal bowel sounds, Soft Extremities: Normal pulses - Results Results: Laboratory Results WBC 15.3 x10^3/uL (4.8-10.8) H 03/30/21 04:55 RBC 4.14 10^6/uL (4.70-6.10) L 03/30/21 04:55 Hgb 13.1 g/dL (14.0-18.0) L 03/30/21 04:55 Hct 39.2 % (42.0-52.0) L 03/30/21 04:55 MCV 94.7 fL (80.0-94.0) H 03/30/21 04:55 MCH 31.6 pg (27.0-31.0) H 03/30/21 04:55 MCHC 33.4 g/dL (32.0-36.0) 03/30/21 04:55 RDW 14.6 % (12.0-15.0) 03/30/21 04:55 Plt Count 714 10^3/uL (130-450) H 03/30/21 04:55 MPV 9.2 fL (7.4-11.4) 03/30/21 04:55 Neut # (Auto) 11.9 10^3/uL (1.5-6.6) H 03/30/21 04:55 Lymph # (Auto) 1.9 10^3/uL (1.5-3.5) 03/30/21 04:55 [place] # (Auto) 1.3 10^3/uL (0.0-1.0) H 03/30/21 04:55 Eos # (Auto) 0.0 10^3/uL (0.0-0.7) 03/30/21 04:55 Baso # (Auto) 0.0 10^3/uL (0.0-0.1) 03/30/21 04:55 Absolute Nucleated RBC 0.00 x10^3/uL 03/30/21 04:55 Nucleated RBC % 0.0 /100WBC 03/30/21 04:55 Sodium 140 mmol/L (135-145) 03/30/21 04:55 Potassium 3.7 mmol/L (3.5-5.0) 03/30/21 04:55 Chloride 102 mmol/L (101-111) 03/30/21 04:55 Carbon Dioxide 27 mmol/L (21-32) 03/30/21 04:55 Anion Gap 11.0 (6-13) 03/30/21 04:55 BUN 13 mg/dL (6-20) 03/30/21 04:55 Creatinine 0.7 mg/dL (0.6-1.2) 03/30/21 04:55 Estimated GFR (MDRD) 117 (>89) 03/30/21 04:55 Glucose 87 mg/dL (70-100) 03/30/21 04:55 Lactic Acid 1.0 mmol/L (0.5-2.2) 03/26/21 21:43 Calcium 8.3 mg/dL (8.5-10.3) L 03/30/21 04:55 Troponin I High Sens 7.4 ng/L (2.3-19.7) 03/26/21 20:30 C-Reactive Protein 17.3 mg/dL (0-1.0) H 03/30/21 04:55 B-Natriuretic Peptide 67 pg/mL (5-100) 03/26/21 20:30 Total Protein 7.0 g/dL (6.7-8.2) 03/29/21 04:32 Albumin 2.5 g/dL (3.2-5.5) L 03/29/21 04:32 Nasal Adenovirus (PCR) NOT DETECTED 03/27/21 01:38 Nasal B. parapertussis DNA (PCR) NOT DETECTED 03/27/21 01:38 Nasal Coronavir 229E PCR NOT DETECTED 03/27/21 01:38 Nasal Coronavir HKU1 PCR NOT DETECTED 03/27/21 01:38 Nasal Coronavir NL63 PCR NOT DETECTED 03/27/21 01:38 Nasal Coronavir OC43 PCR NOT DETECTED 03/27/21 01:38 Nasal Enterovir/Rhinovir PCR NOT DETECTED 03/27/21 01:38 Nasal Influenza B PCR NOT DETECTED 03/27/21 01:38 Nasal Influenza A PCR NOT DETECTED 03/27/21 01:38 Nasal Parainfluen 1 PCR NOT DETECTED 03/27/21 01:38 Nasal Parainfluen 2 PCR NOT DETECTED 03/27/21 01:38 Nasal Parainfluen 3 PCR NOT DETECTED 03/27/21 01:38 Nasal Parainfluen 4 PCR NOT DETECTED 03/27/21 01:38 Nasal RSV (PCR) NOT DETECTED 03/27/21 01:38 Nasal Screen MRSA (PCR) NEGATIVE (NEGATIVE) 03/27/21 04:00 Nasal B.pertussis DNA PCR NOT DETECTED 03/27/21 01:38 Nasal C.pneumoniae (PCR) NOT DETECTED 03/27/21 01:38 Rohith Human Metapneumo PCR NOT DETECTED 03/27/21 01:38 Nasal M.pneumoniae (PCR) NOT DETECTED 03/27/21 01:38 Nasal SARS-CoV-2 (PCR) NOT DETECTED 03/27/21 01:38 Urine Opiates Screen NEGATIVE (NEGATIVE) 03/27/21 00:15 Ur Oxycodone Screen NEGATIVE (NEGATIVE) 03/27/21 00:15 Urine Methadone Screen NEGATIVE (NEGATIVE) 03/27/21 00:15 Ur Propoxyphene Screen NEGATIVE (NEGATIVE) 03/27/21 00:15 Ur Barbiturates Screen NEGATIVE (NEGATIVE) 03/27/21 00:15 Ur Tricyclics Screen NEGATIVE (NEGATIVE) 03/27/21 00:15 Ur Phencyclidine Scrn NEGATIVE (NEGATIVE) 03/27/21 00:15 Ur Amphetamine Screen NEGATIVE (NEGATIVE) 03/27/21 00:15 U Methamphetamines Scrn NEGATIVE (NEGATIVE) 03/27/21 00:15 U Benzodiazepines Scrn NEGATIVE (NEGATIVE) 03/27/21 00:15 Urine Cocaine Screen NEGATIVE (NEGATIVE) 03/27/21 00:15 U Cannabinoids Screen POSITIVE (NEGATIVE) H 03/27/21 00:15 Sepsis Event Note (H) - Evaluation Current Stage of Sepsis: Resolved Possible source of Sepsis: positive: Pulmonary - Sepsis Criteria Sepsis Criteria: Recorded Heart Rate greater than 90 bpm, Respiratory: Increasing oxygen requirements, WBC count greater than 12,000 or less than 4000 ABX Reporting Has patient been on IV antibiotics over the past 48 hours?: Yes Current Medications - Current Medications Current Medications: Active Medications Acetaminophen (Acetaminophen 325 Mg Tablet) 650 mg PO Q4HR PRN PRN Reason: Pain 1 to 4 Last Admin: 03/30/21 01:45 Dose: 650 mg Documented by: Hydrocodone Bitart/Acetaminophen (Hydrocod/Acetam 5/325 Mg Tablet) 1 tab PO Q4HR PRN PRN Reason: Pain 5 to 7 Last Admin: 03/28/21 07:51 Dose: 1 tab Documented by: Albuterol (Albuterol Neb 2.5 Mg/3 Ml) 2.5 mg INH Q4H PRN PRN Reason: Wheezing Albuterol/Ipratropium (Ipratropium/Albuterol 3 Ml Neb) 3 ml INH RTQID DIANA Last Admin: 03/30/21 12:30 Dose: Not Given Documented by: Budesonide (Budesonide 0.5 Mg/2 Ml Neb) 0.5 mg INH RTBID [facility] Last Admin: 03/30/21 10:09 Dose: 0.5 mg Documented by: Enoxaparin Sodium (Enoxaparin 30 Mg/0.3 Ml Syringe) 30 mg SUBQ DAILY [facility] Last Admin: 03/30/21 09:11 Dose: 30 mg Documented by: Formoterol Fumarate (Formoterol Fumarate Neb 20 Mcg/2 Ml) 20 mcg INH RTBID [facility] Last Admin: 03/30/21 10:09 Dose: 20 mcg Documented by: Guaifenesin (Guaifenesin 600 Mg Tablet) 600 mg PO DAILY [facility] Last Admin: 03/30/21 09:11 Dose: 600 mg Documented by: Guaifenesin (Guaifenesin/Dextromethorphan 10 Ml Udc) 10 ml PO Q6HR PRN PRN Reason: Cough Last Admin: 03/29/21 00:00 Dose: 10 ml Documented by: Piperacillin Sod/Tazobactam (Sod 3.375 gm/ Sodium Chloride) 100 mls @ 25 mls/hr IV Q8H [facility] Last Admin: 03/30/21 09:11 Dose: 25 mls/hr Documented by: Multivitamins/Minerals (Multivitamin W/Minerals Tablet) 1 tab PO DAILYWM [facility] Last Admin: 03/30/21 09:10 Dose: 1 tab Documented by: Ondansetron HCl (Ondansetron 4 Mg/2 Ml Vial) 4 mg IVP Q6HR PRN PRN Reason: Nausea / Vomiting Pantoprazole Sodium (Pantoprazole 40 Mg Tablet) 40 mg PO QDAC [facility] Last Admin: 03/30/21 06:31 Dose: 40 mg Documented by: Prednisone (Prednisone 20 Mg Tablet) 20 mg PO DAILYWM [facility] Last Admin: 03/30/21 09:10 Dose: 20 mg Documented by: Saccharomyces Boulardii (Saccharomyces Boulardii 250 Mg Capsule) 250 mg PO BIDWM [facility] Last Admin: 03/30/21 09:11 Dose: 250 mg Documented by: Sodium Chloride (Sodium Chloride Flush 0.9% 10 Ml Syringe) 10 ml IVP PRN PRN PRN Reason: NEEDED PER PROVIDER ORDERS Last Admin: 03/30/21 00:19 Dose: 10 ml Documented by: Sodium Chloride (Sodium Chloride Flush 0.9% 10 Ml Syringe) 10 ml IVP 0100,0900,1700 [facility] Last Admin: 03/30/21 09:11 Dose: 10 ml Documented by: Sucralfate (Sucralfate 1 Gm/10 Ml Udc) 1 gm PO ACHS [facility] Last Admin: 03/30/21 11:31 Dose: 1 gm Documented by: Tamsulosin HCl (Tamsulosin 0.4 Mg Capsule) 0.4 mg PO DAILY [facility] Last Admin: 03/30/21 09:11 Dose: 0.4 mg Documented by: Zolpidem Tartrate (Zolpidem 5 Mg Tablet) 5 mg PO HS PRN PRN Reason: Insomnia Albuterol Sulfate [Proair Hfa Inhaler] 1 - 2 puffs IH Q4HR PRN 03/20/21 Fluticasone/Salmeterol [Advair 500-50 Diskus] 1 puffs IH BID 03/20/21 Ipratropium [place] 1 spray NS DAILY 03/20/21 Tamsulosin [Flomax] 0.4 mg PO DAILY 03/20/21 Zolpidem [Ambien] 0 mg PO HS PRN 03/20/21
[2021-03-31] MEDS: PIPERACILLIN/TAZOBACTAM 3.375 GM in SODIUM CHLORIDE 0.9% MINIBAG 100 ML IV SCH ×2 (01:07→08:27)
[2021-03-31] MEDS: SODIUM CHLORIDE FLUSH 0.9% 10 ML SYRINGE IVP SCH ×3 (01:07→18:00)
[2021-03-31 05:48] LABS: BASOPHILS # (AUTO) 0.1 10^3/uL (0.0-0.1); BASOPHILS % (AUTO) 0.5 %; EOSINOPHILS # (AUTO) 0.1 10^3/uL (0.0-0.7); EOSINOPHILS % (AUTO) 0.5 %; HCT - HEMATOCRIT 39.3 % (42.0-52.0); HGB - HEMOGLOBIN 12.8 g/dL (14.0-18.0); LYMPHOCYTES # (AUTO) 2.6 10^3/uL (1.5-3.5); LYMPHOCYTES % (AUTO) 19.5 %; MEAN CORPUSCULAR HEMOGLOBIN 31.4 pg (27.0-31.0); MEAN CORPUSCULAR HGB CONC 32.6 g/dL (32.0-36.0); MEAN CORPUSCULAR VOLUME 96.3 fL (80.0-94.0); MONOCYTES # (AUTO) 0.9 10^3/uL (0.0-1.0); MONOCYTES % (AUTO) 6.7 %; NEUTROPHILS # (AUTO) 9.6 10^3/uL (1.5-6.6); NEUTROPHILS % (AUTO) 71.7 %; RED BLOOD COUNT 4.08 10^6/uL (4.70-6.10); RED CELL DISTRIBUTION WIDTH 14.7 % (12.0-15.0); WHITE BLOOD COUNT 13.3 x10^3/uL (4.8-10.8)
[2021-03-31 06:04] LABS: CREATININE 0.8 mg/dL (0.6-1.2); CRP - C-REACTIVE PROTEIN 13.7 mg/dL (0-1.0)
[2021-03-31 06:14] LABS: CALCIUM 8.6 mg/dL (8.5-10.3)
[2021-03-31 06:17] LABS: PLT - PLATELET COUNT 805 10^3/uL (130-450)
[2021-03-31] MEDS: SUCRALFATE 1 GM/10 ML UDC PO SCH ×4 (06:35→20:21)
[2021-03-31] MEDS: PANTOPRAZOLE 40 MG TABLET PO SCH (06:35)
[2021-03-31] MEDS: SACCHAROMYCES BOULARDII 250 MG CAPSULE PO SCH ×2 (08:26→16:15)
[2021-03-31] MEDS: ENOXAPARIN 40 MG/0.4 ML SYRINGE SUBQ SCH (08:26)
[2021-03-31] MEDS: MULTIVITAMIN W/MINERALS TABLET PO SCH (08:27)
[2021-03-31] MEDS: predniSONE 20 MG TABLET PO SCH (08:27)
[2021-03-31] MEDS: TAMSULOSIN 0.4 MG CAPSULE PO SCH (08:27)
[2021-03-31] MEDS: guaiFENesin 600 MG TABLET PO SCH (08:27)
[2021-03-31 08:51] LABS: ABSOLUTE RETICS # AUTO 0.05 10^6/uL (0.020-0.110); RED BLOOD COUNT 4.1 10^6/uL (4.70-6.10); RETICULOCYTE COUNT % (AUTO) 1.21 % (0.5-2.3)
[2021-03-31] MEDS ORDERED: CEFEPIME 2 GM in SODIUM CHLORIDE 0.9% MINIBAG 100 ML IV SCH (09:00)
[2021-03-31 09:12] LABS: % IRON SATURATION 41 % (20-50); IRON 72 ug/dL (45-182); TOTAL IRON BINDING CAPACITY 175 ug/dL (250-450); TRANSFERRIN 125 mg/dL (180-329)
[2021-03-31 09:21] LABS: FERRITIN 1133.5 ng/mL (23.9-336.2)
[2021-03-31] MEDS: FORMOTEROL FUMARATE NEB 20 MCG/2 ML INH SCH ×2 (09:40→22:16)
[2021-03-31] MEDS: BUDESONIDE 0.5 MG/2 ML NEB INH SCH ×2 (09:40→22:14)
[2021-03-31] MEDS: IPRATROPIUM/ALBUTEROL 3 ML NEB INH SCH ×4 (09:40→22:16)
[2021-03-31] MEDS ORDERED: PIPERACILLIN/TAZOBACTAM 3.375 GM in SODIUM CHLORIDE 0.9% MINIBAG 100 ML IV SCH (10:00)
--- NOTE | 2021-03-31 11:56 | PROVIDER PROGRESS NOTE ---
Assessment/Plan - Problem List (1) Pneumonia Qualifiers: Pneumonia type: due to unspecified organism Laterality: left Lung location: upper lobe of lung Qualified Code(s): J18.9 - Pneumonia, unspecified organism Assessment/Plan: 03/31 WBC is continuing trended down, WBC is 13 today. as CRP trending down. Pt can slowly walk. pt feel better continue antibiotics. plan to have image study on tomorrow. 03/30, pt report he is improving but he still shortness of breath on exertion, and fatigue and tired. pt is slowly improved. his WBC is 15 and CRP is 17. pt is on Zosyn single agent antibiotics, and lower dosage of steroid for pneumonitis as well. will repeat CXR. order blood culture (2)thrombocytosis 03/31 pt had Plt 805. he had gradually increased Plt count. pt denies fever, flush symptoms. pt is asymptomatic. pt has significantly elevated CRP and ESR and elevated Ferritin. it is likely due to reactive from his extensive pneumonia infection. we will repeat CBC, check jak2, continue lovenox, continue lab monitor. (3) Sepsis Impression: resolved. No longer meets criteria. (4) Protein-calorie malnutrition, moderate Impression: hx of COPD and hx of cigarette smoker, with currently marijuana. Acute protein calorie malnutrition noted on exam with severe muscle wasting, cachexia. Will follow up with nutrition service. (5) COPD (chronic obstructive pulmonary disease) Impression: History of COPD. CT confirmed advanced centrilobuluar emphysema. Continue bronchodilators. No acute exacerbation at this time. - Current Meds Current Meds: Current Medications Generic Name Dose Route Start Last Admin Trade Name [place]ton PRN Reason Stop Dose Admin Acetaminophen 650 mg 03/27/21 01:47 03/30/21 22:18 Acetaminophen 325 Mg Tablet PO 650 mg Q4HR PRN Administration Pain 1 to 4 Hydrocodone Bitart/Acetaminophen 1 tab 03/27/21 01:47 03/28/21 07:51 Hydrocod/Acetam 5/325 Mg Tablet PO 1 tab Q4HR PRN Administration Pain 5 to 7 Albuterol/Ipratropium 3 ml 03/27/21 07:00 03/31/21 09:40 Ipratropium/Albuterol 3 Ml Neb INH 3 ml RTQID DIANA Administration Budesonide 0.5 mg 03/27/21 07:00 03/31/21 09:40 Budesonide 0.5 Mg/2 Ml Neb INH 0.5 mg RTBID DIANA Administration Enoxaparin Sodium 40 mg 03/31/21 09:00 03/31/21 08:26 Enoxaparin 40 Mg/0.4 Ml Syringe SUBQ 40 mg DAILY DIANA Administration Formoterol Fumarate 20 mcg 03/27/21 07:00 03/31/21 09:40 Formoterol Fumarate Neb 20 Mcg/2 Ml INH 20 mcg RTBID DIANA Administration Guaifenesin 600 mg 03/27/21 09:00 03/31/21 08:27 Guaifenesin 600 Mg Tablet PO 600 mg DAILY DIANA Administration Guaifenesin 10 ml 03/27/21 01:44 03/29/21 00:00 Guaifenesin/Dextromethorphan 10 Ml Udc PO 10 ml Q6HR PRN Administration Cough Piperacillin Sod/Tazobactam 100 mls @ 25 mls/hr 03/31/21 10:00 03/31/21 10:01 Sod 3.375 gm/ Sodium Chloride IV 25 mls/hr Q8H DIANA Administration Multivitamins/Minerals 1 tab 03/29/21 15:00 03/31/21 08:27 Multivitamin W/Minerals Tablet PO 1 tab DAILYWM DIANA Administration Pantoprazole Sodium 40 mg 03/27/21 07:00 03/31/21 06:35 Pantoprazole 40 Mg Tablet PO 40 mg QDAC DIANA Administration Prednisone 20 mg 03/27/21 08:00 03/31/21 08:27 Prednisone 20 Mg Tablet PO 20 mg DAILYWM DINAA Administration Saccharomyces Boulardii 250 mg 03/28/21 08:00 03/31/21 08:26 Saccharomyces Boulardii 250 Mg Capsule PO 250 mg BIDWM DIANA Administration Sodium Chloride 10 ml 03/27/21 01:47 03/30/21 00:19 Sodium Chloride Flush 0.9% 10 Ml Syringe IVP 10 ml PRN PRN Administration NEEDED PER PROVIDER ORDERS Sodium Chloride 10 ml 03/27/21 09:00 03/31/21 10:00 Sodium Chloride Flush 0.9% 10 Ml Syringe IVP 10 ml 0100,0900,1700 DIANA Administration Sucralfate 1 gm 03/27/21 07:00 03/31/21 11:31 Sucralfate 1 Gm/10 Ml Udc PO 1 gm ACHS DIANA Administration Tamsulosin HCl 0.4 mg 03/27/21 09:00 03/31/21 08:27 Tamsulosin 0.4 Mg Capsule PO 0.4 mg DAILY DIANA Administration - Lab Result Fish Bone Diagrams: 03/31/21 05:28 03/31/21 05:28 - Additional Planning My Orders: My Active Orders 03/31/21 07:10 JAK2 [id number] MUTATION QUANT [REFLAB] Urgent 03/31/21 09:00 Enoxaparin [Lovenox] 40 mg SUBQ DAILY 03/31/21 15:00 CBC - COMP BLD CT W/AUTO DIFF [HEME] Timed 04/01/21 05:00 BMP - BASIC METABOLIC PANEL [CHEM] DAILYLAB CBC - COMP BLD CT W/AUTO DIFF [HEME] DAILYLAB CRP - C-REACTIVE PROTEIN [CHEM] DAILYLAB ESR- ERYTHROCYTE SEDIMENT RATE [HEME] DAILYLAB 04/02/21 05:00 BMP - BASIC METABOLIC PANEL [CHEM] DAILYLAB CBC - COMP BLD CT W/AUTO DIFF [HEME] DAILYLAB CRP - C-REACTIVE PROTEIN [CHEM] DAILYLAB ESR- ERYTHROCYTE SEDIMENT RATE [HEME] DAILYLAB 04/03/21 05:00 BMP - BASIC METABOLIC PANEL [CHEM] DAILYLAB CBC - COMP BLD CT W/AUTO DIFF [HEME] DAILYLAB CRP - C-REACTIVE PROTEIN [CHEM] DAILYLAB ESR- ERYTHROCYTE SEDIMENT RATE [HEME] DAILYLAB 04/04/21 05:00 BMP - BASIC METABOLIC PANEL [CHEM] DAILYLAB CBC - COMP BLD CT W/AUTO DIFF [HEME] DAILYLAB CRP - C-REACTIVE PROTEIN [CHEM] DAILYLAB ESR- ERYTHROCYTE SEDIMENT RATE [HEME] DAILYLAB 04/05/21 05:00 BMP - BASIC METABOLIC PANEL [CHEM] DAILYLAB CBC - COMP BLD CT W/AUTO DIFF [HEME] DAILYLAB ESR- ERYTHROCYTE SEDIMENT RATE [HEME] DAILYLAB Subjective - Subjective Patient Reports: Feeling Better Objective Vital Signs: Vital Signs - 24 hr 03/30/21 03/30/21 03/30/21 15:43 16:15 20:32 Temperature 36.9 C Heart Rate 91 91 Heart Rate [ 93 Brachial] Respiratory 16 18 20 Rate Blood Pressure 127/80 [Left Brachial artery] O2 Saturation 96 03/31/21 03/31/21 03/31/21 00:00 07:49 09:40 Temperature 36.6 C 37.1 C Heart Rate 109 H Heart Rate [ 81 91 Brachial] Respiratory 16 22 16 Rate Blood Pressure 104/62 119/80 [Left Brachial artery] O2 Saturation 95 97 Oxygen O2 Source Room air I&O (Last 24 Hrs): Intake and Output Totals x24h 03/29/21 03/30/21 03/31/21 23:59 23:59 23:59 Intake Total 1736 2170 450 Balance 1736 2170 450 General: Alert, Oriented x3, Cooperative HEENT: Atraumatic, PERRLA Neck: Supple Neuro: Alert, Non Focal, Oriented Times 3 Cardiovascular: Regular rate, Normal S1, Normal S2 Respiratory: Chest non-tender, No respiratory distress Abdomen: Normal bowel sounds, Soft Extremities: Normal pulses - Results Results: Laboratory Results WBC 13.3 x10^3/uL (4.8-10.8) H 03/31/21 05:28 RBC 4.08 10^6/uL (4.70-6.10) L 03/31/21 05:28 RBC 4.10 10^6/uL (4.70-6.10) L 03/31/21 05:28 Hgb 12.8 g/dL (14.0-18.0) L 03/31/21 05:28 Hct 39.3 % (42.0-52.0) L 03/31/21 05:28 MCV 96.3 fL (80.0-94.0) H 03/31/21 05:28 MCH 31.4 pg (27.0-31.0) H 03/31/21 05:28 MCHC 32.6 g/dL (32.0-36.0) 03/31/21 05:28 RDW 14.7 % (12.0-15.0) 03/31/21 05:28 Plt Count 805 10^3/uL (130-450) H* 03/31/21 05:28 MPV 9.0 fL (7.4-11.4) 03/31/21 05:28 Reticulocyte % (Auto) 1.21 % (0.5-2.3) 03/31/21 05:28 Neut # (Auto) 9.6 10^3/uL (1.5-6.6) H 03/31/21 05:28 Lymph # (Auto) 2.6 10^3/uL (1.5-3.5) 03/31/21 05:28 [place] # (Auto) 0.9 10^3/uL (0.0-1.0) 03/31/21 05:28 Eos # (Auto) 0.1 10^3/uL (0.0-0.7) 03/31/21 05:28 Baso # (Auto) 0.1 10^3/uL (0.0-0.1) 03/31/21 05:28 Absolute Nucleated RBC 0.00 x10^3/uL 03/31/21 05:28 Nucleated RBC % 0.0 /100WBC 03/31/21 05:28 ESR 57 mm/Hr (0-20) H 03/31/21 05:28 Absolute Retic 0.050 10^6/uL (0.020-0.110) 03/31/21 05:28 Sodium 139 mmol/L (135-145) 03/31/21 05:28 Potassium 4.0 mmol/L (3.5-5.0) 03/31/21 05:28 Chloride 101 mmol/L (101-111) 03/31/21 05:28 Carbon Dioxide 27 mmol/L (21-32) 03/31/21 05:28 Anion Gap 11.0 (6-13) 03/31/21 05:28 BUN 13 mg/dL (6-20) 03/31/21 05:28 Creatinine 0.8 mg/dL (0.6-1.2) 03/31/21 05:28 Estimated GFR (MDRD) 100 (>89) 03/31/21 05:28 Glucose 118 mg/dL (70-100) H 03/31/21 05:28 Lactic Acid 1.0 mmol/L (0.5-2.2) 03/26/21 21:43 Calcium 8.6 mg/dL (8.5-10.3) 03/31/21 05:28 Iron 72 ug/dL (45-182) 03/31/21 05:28 TIBC 175 ug/dL (250-450) L 03/31/21 05:28 % Saturation 41 % (20-50) 03/31/21 05:28 Transferrin 125 mg/dL (180-329) L 03/31/21 05:28 Ferritin 1133.5 ng/mL (23.9-336.2) H 03/31/21 05:28 Lactate Dehydrogenase 135 IU/L (91-225) 03/31/21 05:28 Troponin I High Sens 7.4 ng/L (2.3-19.7) 03/26/21 20:30 C-Reactive Protein 13.7 mg/dL (0-1.0) H 03/31/21 05:28 B-Natriuretic Peptide 67 pg/mL (5-100) 03/26/21 20:30 Total Protein 7.0 g/dL (6.7-8.2) 03/29/21 04:32 Albumin 2.5 g/dL (3.2-5.5) L 03/29/21 04:32 Vitamin B12 701 pg/mL (180-914) 03/31/21 05:28 Nasal Adenovirus (PCR) NOT DETECTED 03/27/21 01:38 Nasal B. parapertussis DNA (PCR) NOT DETECTED 03/27/21 01:38 Nasal Coronavir 229E PCR NOT DETECTED 03/27/21 01:38 Nasal Coronavir HKU1 PCR NOT DETECTED 03/27/21 01:38 Nasal Coronavir NL63 PCR NOT DETECTED 03/27/21 01:38 Nasal Coronavir OC43 PCR NOT DETECTED 03/27/21 01:38 Nasal Enterovir/Rhinovir PCR NOT DETECTED 03/27/21 01:38 Nasal Influenza B PCR NOT DETECTED 03/27/21 01:38 Nasal Influenza A PCR NOT DETECTED 03/27/21 01:38 Nasal Parainfluen 1 PCR NOT DETECTED 03/27/21 01:38 Nasal Parainfluen 2 PCR NOT DETECTED 03/27/21 01:38 Nasal Parainfluen 3 PCR NOT DETECTED 03/27/21 01:38 Nasal Parainfluen 4 PCR NOT DETECTED 03/27/21 01:38 Nasal RSV (PCR) NOT DETECTED 03/27/21 01:38 Nasal Screen MRSA (PCR) NEGATIVE (NEGATIVE) 03/27/21 04:00 Nasal B.pertussis DNA PCR NOT DETECTED 03/27/21 01:38 Nasal C.pneumoniae (PCR) NOT DETECTED 03/27/21 01:38 Rohith Human Metapneumo PCR NOT DETECTED 03/27/21 01:38 Nasal M.pneumoniae (PCR) NOT DETECTED 03/27/21 01:38 Nasal SARS-CoV-2 (PCR) NOT DETECTED 03/27/21 01:38 Urine Opiates Screen NEGATIVE (NEGATIVE) 03/27/21 00:15 Ur Oxycodone Screen NEGATIVE (NEGATIVE) 03/27/21 00:15 Urine Methadone Screen NEGATIVE (NEGATIVE) 03/27/21 00:15 Ur Propoxyphene Screen NEGATIVE (NEGATIVE) 03/27/21 00:15 Ur Barbiturates Screen NEGATIVE (NEGATIVE) 03/27/21 00:15 Ur Tricyclics Screen NEGATIVE (NEGATIVE) 03/27/21 00:15 Ur Phencyclidine Scrn NEGATIVE (NEGATIVE) 03/27/21 00:15 Ur Amphetamine Screen NEGATIVE (NEGATIVE) 03/27/21 00:15 U Methamphetamines Scrn NEGATIVE (NEGATIVE) 03/27/21 00:15 U Benzodiazepines Scrn NEGATIVE (NEGATIVE) 03/27/21 00:15 Urine Cocaine Screen NEGATIVE (NEGATIVE) 03/27/21 00:15 U Cannabinoids Screen POSITIVE (NEGATIVE) H 03/27/21 00:15 Sepsis Event Note (H) - Evaluation Current Stage of Sepsis: Resolved Possible source of Sepsis: positive: Pulmonary - Sepsis Criteria Sepsis Criteria: Recorded Heart Rate greater than 90 bpm, Respiratory: Increasing oxygen requirements, WBC count greater than 12,000 or less than 4000 ABX Reporting Has patient been on IV antibiotics over the past 48 hours?: Yes Current Medications - Current Medications Current Medications: Active Medications Acetaminophen (Acetaminophen 325 Mg Tablet) 650 mg PO Q4HR PRN PRN Reason: Pain 1 to 4 Last Admin: 03/30/21 22:18 Dose: 650 mg Documented by: Hydrocodone Bitart/Acetaminophen (Hydrocod/Acetam 5/325 Mg Tablet) 1 tab PO Q4HR PRN PRN Reason: Pain 5 to 7 Last Admin: 03/28/21 07:51 Dose: 1 tab Documented by: Albuterol (Albuterol Neb 2.5 Mg/3 Ml) 2.5 mg INH Q4H PRN PRN Reason: Wheezing Albuterol/Ipratropium (Ipratropium/Albuterol 3 Ml Neb) 3 ml INH RTQID DIANA Last Admin: 03/31/21 09:40 Dose: 3 ml Documented by: Budesonide (Budesonide 0.5 Mg/2 Ml Neb) 0.5 mg INH RTBID DIANA Last Admin: 03/31/21 09:40 Dose: 0.5 mg Documented by: Enoxaparin Sodium (Enoxaparin 40 Mg/0.4 Ml Syringe) 40 mg SUBQ DAILY [facility] Last Admin: 03/31/21 08:26 Dose: 40 mg Documented by: Formoterol Fumarate (Formoterol Fumarate Neb 20 Mcg/2 Ml) 20 mcg INH RTBID [facility] Last Admin: 03/31/21 09:40 Dose: 20 mcg Documented by: Guaifenesin (Guaifenesin 600 Mg Tablet) 600 mg PO DAILY [facility] Last Admin: 03/31/21 08:27 Dose: 600 mg Documented by: Guaifenesin (Guaifenesin/Dextromethorphan 10 Ml Udc) 10 ml PO Q6HR PRN PRN Reason: Cough Last Admin: 03/29/21 00:00 Dose: 10 ml Documented by: Piperacillin Sod/Tazobactam (Sod 3.375 gm/ Sodium Chloride) 100 mls @ 25 mls/hr IV Q8H [facility] Last Admin: 03/31/21 10:01 Dose: 25 mls/hr Documented by: Multivitamins/Minerals (Multivitamin W/Minerals Tablet) 1 tab PO DAILYWM [facility] Last Admin: 03/31/21 08:27 Dose: 1 tab Documented by: Ondansetron HCl (Ondansetron 4 Mg/2 Ml Vial) 4 mg IVP Q6HR PRN PRN Reason: Nausea / Vomiting Pantoprazole Sodium (Pantoprazole 40 Mg Tablet) 40 mg PO QDAC [facility] Last Admin: 03/31/21 06:35 Dose: 40 mg Documented by: Prednisone (Prednisone 20 Mg Tablet) 20 mg PO DAILYWM [facility] Last Admin: 03/31/21 08:27 Dose: 20 mg Documented by: Saccharomyces Boulardii (Saccharomyces Boulardii 250 Mg Capsule) 250 mg PO BIDWM [facility] Last Admin: 03/31/21 08:26 Dose: 250 mg Documented by: Sodium Chloride (Sodium Chloride Flush 0.9% 10 Ml Syringe) 10 ml IVP PRN PRN PRN Reason: NEEDED PER PROVIDER ORDERS Last Admin: 03/30/21 00:19 Dose: 10 ml Documented by: Sodium Chloride (Sodium Chloride Flush 0.9% 10 Ml Syringe) 10 ml IVP 0100,0900,1700 [facility] Last Admin: 03/31/21 10:00 Dose: 10 ml Documented by: Sucralfate (Sucralfate 1 Gm/10 Ml Udc) 1 gm PO ACHS [facility] Last Admin: 03/31/21 11:31 Dose: 1 gm Documented by: Tamsulosin HCl (Tamsulosin 0.4 Mg Capsule) 0.4 mg PO DAILY [facility] Last Admin: 03/31/21 08:27 Dose: 0.4 mg Documented by: Zolpidem Tartrate (Zolpidem 5 Mg Tablet) 5 mg PO HS PRN PRN Reason: Insomnia Albuterol Sulfate [Proair Hfa Inhaler] 1 - 2 puffs IH Q4HR PRN 03/20/21 Fluticasone/Salmeterol [Advair 500-50 Diskus] 1 puffs IH BID 03/20/21 Ipratropium [place] 1 spray NS DAILY 03/20/21 Tamsulosin [Flomax] 0.4 mg PO DAILY 03/20/21 Zolpidem [Ambien] 0 mg PO HS PRN 03/20/21
[2021-03-31] MEDS: ACETAMINOPHEN 325 MG TABLET PO PRN ×2 (14:22→20:20)
[2021-03-31 15:17] LABS: BASOPHILS % (AUTO) 0.2 %; HCT - HEMATOCRIT 41.9 % (42.0-52.0); HGB - HEMOGLOBIN 13.8 g/dL (14.0-18.0); LYMPHOCYTES # (AUTO) 0.8 10^3/uL (1.5-3.5); LYMPHOCYTES % (AUTO) 4.2 %; MEAN CORPUSCULAR HEMOGLOBIN 31.7 pg (27.0-31.0); MEAN CORPUSCULAR HGB CONC 32.9 g/dL (32.0-36.0); MEAN CORPUSCULAR VOLUME 96.1 fL (80.0-94.0); MEAN PLATELET VOLUME 9.1 fL (7.4-11.4); MONOCYTES # (AUTO) 0.5 10^3/uL (0.0-1.0); MONOCYTES % (AUTO) 2.8 %; NEUTROPHILS % (AUTO) 91.7 %; RED BLOOD COUNT 4.36 10^6/uL (4.70-6.10); RED CELL DISTRIBUTION WIDTH 14.7 % (12.0-15.0); WHITE BLOOD COUNT 18.5 x10^3/uL (4.8-10.8)
[2021-03-31 15:22] LABS: PLT - PLATELET COUNT 904 10^3/uL (130-450)
[2021-03-31] MEDS ORDERED: predniSONE 20 MG TABLET PO SCH (16:00)
[2021-03-31 16:59] LABS: INR 1.2 (0.8-1.2)
[2021-03-31] MEDS: CEFEPIME 2 GM in SODIUM CHLORIDE 0.9% MINIBAG 100 ML IV SCH (18:00)
[2021-04-01] MEDS: CEFEPIME 2 GM in SODIUM CHLORIDE 0.9% MINIBAG 100 ML IV SCH ×2 (04:50→16:30)
[2021-04-01] MEDS: SODIUM CHLORIDE FLUSH 0.9% 10 ML SYRINGE IVP SCH ×3 (04:50→16:16)
[2021-04-01 06:16] LABS: BASOPHILS % (AUTO) 0.2 %; EOSINOPHILS % (AUTO) 0.1 %; HCT - HEMATOCRIT 39.1 % (42.0-52.0); LYMPHOCYTES # (AUTO) 1.9 10^3/uL (1.5-3.5); MEAN CORPUSCULAR HEMOGLOBIN 31.8 pg (27.0-31.0); MEAN CORPUSCULAR HGB CONC 33.2 g/dL (32.0-36.0); MEAN CORPUSCULAR VOLUME 95.6 fL (80.0-94.0); MEAN PLATELET VOLUME 8.8 fL (7.4-11.4); MONOCYTES % (AUTO) 6.8 %; NEUTROPHILS # (AUTO) 11.6 10^3/uL (1.5-6.6); NEUTROPHILS % (AUTO) 79.1 %; RED BLOOD COUNT 4.09 10^6/uL (4.70-6.10); RED CELL DISTRIBUTION WIDTH 14.6 % (12.0-15.0); WHITE BLOOD COUNT 14.7 x10^3/uL (4.8-10.8)
[2021-04-01 06:24] LABS: PLT - PLATELET COUNT 879 10^3/uL (130-450)
[2021-04-01] MEDS: IPRATROPIUM/ALBUTEROL 3 ML NEB INH SCH ×4 (06:27→18:02)
[2021-04-01] MEDS: FORMOTEROL FUMARATE NEB 20 MCG/2 ML INH SCH ×2 (06:27→18:02)
[2021-04-01] MEDS: BUDESONIDE 0.5 MG/2 ML NEB INH SCH ×2 (06:27→18:02)
[2021-04-01 06:36] LABS: CALCIUM 8.5 mg/dL (8.5-10.3); CREATININE 0.7 mg/dL (0.6-1.2); CRP - C-REACTIVE PROTEIN 7.8 mg/dL (0-1.0); POTASSIUM 4.2 mmol/L (3.5-5.0)
[2021-04-01] MEDS: SUCRALFATE 1 GM/10 ML UDC PO SCH ×4 (06:49→21:06)
[2021-04-01] MEDS: PANTOPRAZOLE 40 MG TABLET PO SCH (06:49)
[2021-04-01] MEDS: MULTIVITAMIN W/MINERALS TABLET PO SCH (07:45)
[2021-04-01] MEDS: SACCHAROMYCES BOULARDII 250 MG CAPSULE PO SCH ×2 (07:45→16:16)
[2021-04-01] MEDS: predniSONE 20 MG TABLET PO SCH (07:45)
[2021-04-01] MEDS ORDERED: predniSONE 20 MG TABLET PO SCH (08:00)
[2021-04-01] MEDS: guaiFENesin 600 MG TABLET PO SCH (08:40)
[2021-04-01] MEDS: TAMSULOSIN 0.4 MG CAPSULE PO SCH (08:40)
[2021-04-01] MEDS: ENOXAPARIN 40 MG/0.4 ML SYRINGE SUBQ SCH (08:40)
--- NOTE | 2021-04-01 12:42 | PROVIDER PROGRESS NOTE ---
Assessment/Plan - Problem List (1) Pneumonia Qualifiers: Pneumonia type: due to unspecified organism Laterality: left Lung location: upper lobe of lung Qualified Code(s): J18.9 - Pneumonia, unspecified organism Assessment/Plan: 04/01 improved. Patient WBC is trended down. Today WBC is 14.7. Blood culture is negative for bacteremia. We will continue antibiotics cefepime, Plan to d/c patient on tomorrow 03/31 WBC is continuing trended down, WBC is 13 today. as CRP trending down. Pt can slowly walk. pt feel better continue antibiotics. plan to have image study on tomorrow. 03/30, pt report he is improving but he still shortness of breath on exertion, and fatigue and tired. pt is slowly improved. his WBC is 15 and CRP is 17. pt is on Zosyn single agent antibiotics, and lower dosage of steroid for pneumonitis as well. will repeat CXR. order blood culture (2)thrombocytosis 04/01 Slightly improved, platelets is slightly reduced, now it is 880 from yesterday on 900. Consult with Dr. Zamora. He also believe it is reactive to the infection. Patient has no bleeding. We will continue Lovenox for DVT prophylaxis, Jak2 test is still pending. 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 he had gradually increased Plt count. pt denies fever, flush symptoms. pt is asymptomatic. pt has significantly elevated CRP and ESR and elevated Ferritin. it is likely due to reactive from his extensive pneumonia infection. we will repeat CBC, check jak2, continue lovenox, continue lab monitor. (3) Sepsis Impression: resolved. No longer meets criteria. (4) Protein-calorie malnutrition, moderate Impression: hx of COPD and hx of cigarette smoker, with currently marijuana. Acute protein calorie malnutrition noted on exam with severe muscle wasting, cachexia. Will follow up with nutrition service. (5) COPD (chronic obstructive pulmonary disease) Impression: History of COPD. CT confirmed advanced centrilobuluar emphysema. Continue bronchodilators. No acute exacerbation at this time. - Current Meds Current Meds: Current Medications Generic Name Dose Route Start Last Admin Trade Name Freq PRN Reason Stop Dose Admin Acetaminophen 650 mg 03/27/21 01:47 03/31/21 20:20 Acetaminophen 325 Mg Tablet PO 650 mg Q4HR PRN Administration Pain 1 to 4 Hydrocodone Bitart/Acetaminophen 1 tab 03/27/21 01:47 03/28/21 07:51 Hydrocod/Acetam 5/325 Mg Tablet PO 1 tab Q4HR PRN Administration Pain 5 to 7 Albuterol/Ipratropium 3 ml 03/27/21 07:00 04/01/21 11:22 Ipratropium/Albuterol 3 Ml Neb INH 3 ml RTQID DIANA Administration Budesonide 0.5 mg 03/27/21 07:00 04/01/21 06:27 Budesonide 0.5 Mg/2 Ml Neb INH 0.5 mg RTBID IDANA Administration Enoxaparin Sodium 40 mg 03/31/21 09:00 04/01/21 08:40 Enoxaparin 40 Mg/0.4 Ml Syringe SUBQ 40 mg DAILY DIANA Administration Formoterol Fumarate 20 mcg 03/27/21 07:00 04/01/21 06:27 Formoterol Fumarate Neb 20 Mcg/2 Ml INH 20 mcg RTBID DIANA Administration Guaifenesin 600 mg 03/27/21 09:00 04/01/21 08:40 Guaifenesin 600 Mg Tablet PO 600 mg DAILY DIANA Administration Guaifenesin 10 ml 03/27/21 01:44 03/29/21 00:00 Guaifenesin/Dextromethorphan 10 Ml Udc PO 10 ml Q6HR PRN Administration Cough Cefepime HCl 2 gm/ Sodium 100 mls @ 200 mls/hr 03/31/21 17:30 04/01/21 05:20 Chloride IV Infused Q12H DIANA Infusion Multivitamins/Minerals 1 tab 03/29/21 15:00 04/01/21 07:45 Multivitamin W/Minerals Tablet PO 1 tab DAILYWM DIANA Administration Pantoprazole Sodium 40 mg 03/27/21 07:00 04/01/21 06:49 Pantoprazole 40 Mg Tablet PO 40 mg QDAC DIANA Administration Prednisone 20 mg 04/01/21 08:00 04/01/21 07:45 Prednisone 20 Mg Tablet PO 20 mg DAILYWM DIANA Administration Saccharomyces Boulardii 250 mg 03/28/21 08:00 04/01/21 07:45 Saccharomyces Boulardii 250 Mg Capsule PO 250 mg BIDWM DIANA Administration Sodium Chloride 10 ml 03/27/21 01:47 03/30/21 00:19 Sodium Chloride Flush 0.9% 10 Ml Syringe IVP 10 ml PRN PRN Administration NEEDED PER PROVIDER ORDERS Sodium Chloride 10 ml 03/27/21 09:00 04/01/21 08:40 Sodium Chloride Flush 0.9% 10 Ml Syringe IVP 10 ml 0100,0900,1700 DIANA Administration Sucralfate 1 gm 03/27/21 07:00 04/01/21 11:12 Sucralfate 1 Gm/10 Ml Udc PO 1 gm ACHS DIANA Administration Tamsulosin HCl 0.4 mg 03/27/21 09:00 04/01/21 08:40 Tamsulosin 0.4 Mg Capsule PO 0.4 mg DAILY DIANA Administration - Lab Result Fish Bone Diagrams: 04/01/21 06:02 04/01/21 06:02 - Additional Planning My Orders: My Active Orders 03/31/21 14:56 JAK2 [id number] MUTATION QUANT [REFLAB] Urgent 03/31/21 17:30 Cefepime 2 gm Sodium Chloride 0.9% Minibag [Normal Saline 0.9% Minibag] 100 ml IV Q12H 04/01/21 08:00 predniSONE [Deltasone] 20 mg PO DAILYWM 04/02/21 05:00 BMP - BASIC METABOLIC PANEL [CHEM] DAILYLAB CBC - COMP BLD CT W/AUTO DIFF [HEME] DAILYLAB CRP - C-REACTIVE PROTEIN [CHEM] DAILYLAB ESR- ERYTHROCYTE SEDIMENT RATE [HEME] DAILYLAB 04/03/21 05:00 BMP - BASIC METABOLIC PANEL [CHEM] DAILYLAB CBC - COMP BLD CT W/AUTO DIFF [HEME] DAILYLAB CRP - C-REACTIVE PROTEIN [CHEM] DAILYLAB ESR- ERYTHROCYTE SEDIMENT RATE [HEME] DAILYLAB 04/04/21 05:00 BMP - BASIC METABOLIC PANEL [CHEM] DAILYLAB CBC - COMP BLD CT W/AUTO DIFF [HEME] DAILYLAB CRP - C-REACTIVE PROTEIN [CHEM] DAILYLAB ESR- ERYTHROCYTE SEDIMENT RATE [HEME] DAILYLAB 04/05/21 05:00 BMP - BASIC METABOLIC PANEL [CHEM] DAILYLAB CBC - COMP BLD CT W/AUTO DIFF [HEME] DAILYLAB ESR- ERYTHROCYTE SEDIMENT RATE [HEME] DAILYLAB Subjective - Subjective Patient Reports: Feeling Better Objective Vital Signs: Vital Signs - 24 hr 03/31/21 03/31/21 03/31/21 13:45 16:00 17:45 Temperature 37.1 C Heart Rate 98 92 Heart Rate [ 103 H Brachial] Respiratory 24 20 22 Rate Blood Pressure [Left Brachial artery] Blood Pressure 124/73 [Right Brachial artery] O2 Saturation 96 03/31/21 03/31/21 04/01/21 22:19 23:25 06:28 Temperature 36.7 C Heart Rate 85 98 Heart Rate [ 98 Brachial] Respiratory 18 16 18 Rate Blood Pressure [Left Brachial artery] Blood Pressure 136/72 H [Right Brachial artery] O2 Saturation 96 04/01/21 04/01/21 07:32 11:30 Temperature 36.7 C Heart Rate 90 Heart Rate [ 84 Brachial] Respiratory 18 18 Rate Blood Pressure 122/74 [Left Brachial artery] Blood Pressure [Right Brachial artery] O2 Saturation 98 Oxygen O2 Source Room air I&O (Last 24 Hrs): Intake and Output Totals x24h 03/30/21 03/31/21 04/01/21 23:59 23:59 23:59 Intake Total 2170 1540 1112 Balance 2170 1540 1112 General: Alert, Oriented x3, Cooperative, No acute distress HEENT: Atraumatic, PERRLA Neck: Supple Lymphatic: no adenopathy Neuro: Alert, Non Focal, Oriented Times 3 Cardiovascular: Regular rate, Normal S1, Normal S2 Respiratory: Chest non-tender, No respiratory distress Abdomen: Normal bowel sounds, Soft, No tenderness Extremities: Normal pulses - Results Results: Laboratory Results WBC 14.7 x10^3/uL (4.8-10.8) H 04/01/21 06:02 RBC 4.09 10^6/uL (4.70-6.10) L 04/01/21 06:02 Hgb 13.0 g/dL (14.0-18.0) L 04/01/21 06:02 Hct 39.1 % (42.0-52.0) L 04/01/21 06:02 MCV 95.6 fL (80.0-94.0) H 04/01/21 06:02 MCH 31.8 pg (27.0-31.0) H 04/01/21 06:02 MCHC 33.2 g/dL (32.0-36.0) 04/01/21 06:02 RDW 14.6 % (12.0-15.0) 04/01/21 06:02 Plt Count 879 10^3/uL (130-450) H* 04/01/21 06:02 MPV 8.8 fL (7.4-11.4) 04/01/21 06:02 Reticulocyte % (Auto) 1.21 % (0.5-2.3) 03/31/21 05:28 Neut # (Auto) 11.6 10^3/uL (1.5-6.6) H 04/01/21 06:02 Lymph # (Auto) 1.9 10^3/uL (1.5-3.5) 04/01/21 06:02 [place] # (Auto) 1.0 10^3/uL (0.0-1.0) 04/01/21 06:02 Eos # (Auto) 0.0 10^3/uL (0.0-0.7) 04/01/21 06:02 Baso # (Auto) 0.0 10^3/uL (0.0-0.1) 04/01/21 06:02 Absolute Nucleated RBC 0.00 x10^3/uL 04/01/21 06:02 Nucleated RBC % 0.0 /100WBC 04/01/21 06:02 ESR 54 mm/Hr (0-20) H 04/01/21 06:02 Absolute Retic 0.050 10^6/uL (0.020-0.110) 03/31/21 05:28 PT 13.0 secs (9.9-12.6) H 03/31/21 16:45 INR 1.2 (0.8-1.2) 03/31/21 16:45 Sodium 137 mmol/L (135-145) 04/01/21 06:02 Potassium 4.2 mmol/L (3.5-5.0) 04/01/21 06:02 Chloride 103 mmol/L (101-111) 04/01/21 06:02 Carbon Dioxide 28 mmol/L (21-32) 04/01/21 06:02 Anion Gap 6.0 (6-13) 04/01/21 06:02 BUN 15 mg/dL (6-20) 04/01/21 06:02 Creatinine 0.7 mg/dL (0.6-1.2) 04/01/21 06:02 Estimated GFR (MDRD) 117 (>89) 04/01/21 06:02 Glucose 107 mg/dL (70-100) H 04/01/21 06:02 Lactic Acid 1.0 mmol/L (0.5-2.2) 03/26/21 21:43 Calcium 8.5 mg/dL (8.5-10.3) 04/01/21 06:02 Iron 72 ug/dL (45-182) 03/31/21 05:28 TIBC 175 ug/dL (250-450) L 03/31/21 05:28 % Saturation 41 % (20-50) 03/31/21 05:28 Transferrin 125 mg/dL (180-329) L 03/31/21 05:28 Ferritin 1133.5 ng/mL (23.9-336.2) H 03/31/21 05:28 Lactate Dehydrogenase 135 IU/L (91-225) 03/31/21 05:28 Troponin I High Sens 7.4 ng/L (2.3-19.7) 03/26/21 20:30 C-Reactive Protein 7.8 mg/dL (0-1.0) H 04/01/21 06:02 B-Natriuretic Peptide 67 pg/mL (5-100) 03/26/21 20:30 Total Protein 7.0 g/dL (6.7-8.2) 03/29/21 04:32 Albumin 2.5 g/dL (3.2-5.5) L 03/29/21 04:32 Vitamin B12 701 pg/mL (180-914) 03/31/21 05:28 TSH 1.53 uIU/mL (0.34-5.60) 04/01/21 06:02 Nasal Adenovirus (PCR) NOT DETECTED 03/27/21 01:38 Nasal B. parapertussis DNA (PCR) NOT DETECTED 03/27/21 01:38 Nasal Coronavir 229E PCR NOT DETECTED 03/27/21 01:38 Nasal Coronavir HKU1 PCR NOT DETECTED 03/27/21 01:38 Nasal Coronavir NL63 PCR NOT DETECTED 03/27/21 01:38 Nasal Coronavir OC43 PCR NOT DETECTED 03/27/21 01:38 Nasal Enterovir/Rhinovir PCR NOT DETECTED 03/27/21 01:38 Nasal Influenza B PCR NOT DETECTED 03/27/21 01:38 Nasal Influenza A PCR NOT DETECTED 03/27/21 01:38 Nasal Parainfluen 1 PCR NOT DETECTED 03/27/21 01:38 Nasal Parainfluen 2 PCR NOT DETECTED 03/27/21 01:38 Nasal Parainfluen 3 PCR NOT DETECTED 03/27/21 01:38 Nasal Parainfluen 4 PCR NOT DETECTED 03/27/21 01:38 Nasal RSV (PCR) NOT DETECTED 03/27/21 01:38 Nasal Screen MRSA (PCR) NEGATIVE (NEGATIVE) 03/27/21 04:00 Nasal B.pertussis DNA PCR NOT DETECTED 03/27/21 01:38 Nasal C.pneumoniae (PCR) NOT DETECTED 03/27/21 01:38 Rohith Human Metapneumo PCR NOT DETECTED 03/27/21 01:38 Nasal M.pneumoniae (PCR) NOT DETECTED 03/27/21 01:38 Nasal SARS-CoV-2 (PCR) NOT DETECTED 03/27/21 01:38 Urine Opiates Screen NEGATIVE (NEGATIVE) 03/27/21 00:15 Ur Oxycodone Screen NEGATIVE (NEGATIVE) 03/27/21 00:15 Urine Methadone Screen NEGATIVE (NEGATIVE) 03/27/21 00:15 Ur Propoxyphene Screen NEGATIVE (NEGATIVE) 03/27/21 00:15 Ur Barbiturates Screen NEGATIVE (NEGATIVE) 03/27/21 00:15 Ur Tricyclics Screen NEGATIVE (NEGATIVE) 03/27/21 00:15 Ur Phencyclidine Scrn NEGATIVE (NEGATIVE) 03/27/21 00:15 Ur Amphetamine Screen NEGATIVE (NEGATIVE) 03/27/21 00:15 U Methamphetamines Scrn NEGATIVE (NEGATIVE) 03/27/21 00:15 U Benzodiazepines Scrn NEGATIVE (NEGATIVE) 03/27/21 00:15 Urine Cocaine Screen NEGATIVE (NEGATIVE) 03/27/21 00:15 U Cannabinoids Screen POSITIVE (NEGATIVE) H 03/27/21 00:15 Sepsis Event Note (H) - Evaluation Current Stage of Sepsis: Resolved Possible source of Sepsis: positive: Pulmonary - Sepsis Criteria Sepsis Criteria: Recorded Heart Rate greater than 90 bpm, Respiratory: Increasing oxygen requirements, WBC count greater than 12,000 or less than 4000 ABX Reporting Has patient been on IV antibiotics over the past 48 hours?: Yes Current Medications - Current Medications Current Medications: Active Medications Acetaminophen (Acetaminophen 325 Mg Tablet) 650 mg PO Q4HR PRN PRN Reason: Pain 1 to 4 Last Admin: 03/31/21 20:20 Dose: 650 mg Documented by: Hydrocodone Bitart/Acetaminophen (Hydrocod/Acetam 5/325 Mg Tablet) 1 tab PO Q4HR PRN PRN Reason: Pain 5 to 7 Last Admin: 03/28/21 07:51 Dose: 1 tab Documented by: Albuterol (Albuterol Neb 2.5 Mg/3 Ml) 2.5 mg INH Q4H PRN PRN Reason: Wheezing Albuterol/Ipratropium (Ipratropium/Albuterol 3 Ml Neb) 3 ml INH RTQID [facility] Last Admin: 04/01/21 11:22 Dose: 3 ml Documented by: Budesonide (Budesonide 0.5 Mg/2 Ml Neb) 0.5 mg INH RTBID [facility] Last Admin: 04/01/21 06:27 Dose: 0.5 mg Documented by: Enoxaparin Sodium (Enoxaparin 40 Mg/0.4 Ml Syringe) 40 mg SUBQ DAILY [facility] Last Admin: 04/01/21 08:40 Dose: 40 mg Documented by: Formoterol Fumarate (Formoterol Fumarate Neb 20 Mcg/2 Ml) 20 mcg INH RTBID [facility] Last Admin: 04/01/21 06:27 Dose: 20 mcg Documented by: Guaifenesin (Guaifenesin 600 Mg Tablet) 600 mg PO DAILY [facility] Last Admin: 04/01/21 08:40 Dose: 600 mg Documented by: Guaifenesin (Guaifenesin/Dextromethorphan 10 Ml Udc) 10 ml PO Q6HR PRN PRN Reason: Cough Last Admin: 03/29/21 00:00 Dose: 10 ml Documented by: Cefepime HCl 2 gm/ Sodium (Chloride) 100 mls @ 200 mls/hr IV Q12H [facility] Last Infusion: 04/01/21 05:20 Dose: Infused Documented by: Multivitamins/Minerals (Multivitamin W/Minerals Tablet) 1 tab PO DAILYWM [facility] Last Admin: 04/01/21 07:45 Dose: 1 tab Documented by: Ondansetron HCl (Ondansetron 4 Mg/2 Ml Vial) 4 mg IVP Q6HR PRN PRN Reason: Nausea / Vomiting Pantoprazole Sodium (Pantoprazole 40 Mg Tablet) 40 mg PO QDAC [facility] Last Admin: 04/01/21 06:49 Dose: 40 mg Documented by: Prednisone (Prednisone 20 Mg Tablet) 20 mg PO DAILYWM [facility] Last Admin: 04/01/21 07:45 Dose: 20 mg Documented by: Saccharomyces Boulardii (Saccharomyces Boulardii 250 Mg Capsule) 250 mg PO BIDWM [facility] Last Admin: 04/01/21 07:45 Dose: 250 mg Documented by: Sodium Chloride (Sodium Chloride Flush 0.9% 10 Ml Syringe) 10 ml IVP PRN PRN PRN Reason: NEEDED PER PROVIDER ORDERS Last Admin: 03/30/21 00:19 Dose: 10 ml Documented by: Sodium Chloride (Sodium Chloride Flush 0.9% 10 Ml Syringe) 10 ml IVP 0100,0900,1700 [facility] Last Admin: 04/01/21 08:40 Dose: 10 ml Documented by: Sucralfate (Sucralfate 1 Gm/10 Ml Udc) 1 gm PO ACHS [facility] Last Admin: 04/01/21 11:12 Dose: 1 gm Documented by: Tamsulosin HCl (Tamsulosin 0.4 Mg Capsule) 0.4 mg PO DAILY [facility] Last Admin: 04/01/21 08:40 Dose: 0.4 mg Documented by: Zolpidem Tartrate (Zolpidem 5 Mg Tablet) 5 mg PO HS PRN PRN Reason: Insomnia Albuterol Sulfate [Proair Hfa Inhaler] 1 - 2 puffs IH Q4HR PRN 03/20/21 Fluticasone/Salmeterol [Advair 500-50 Diskus] 1 puffs IH BID 03/20/21 Ipratropium [place] 1 spray NS DAILY 03/20/21 Tamsulosin [Flomax] 0.4 mg PO DAILY 03/20/21 Zolpidem [Ambien] 0 mg PO HS PRN 03/20/21
--- NOTE | 2021-04-01 12:52 | PROVIDER PROGRESS NOTE ---
Assessment/Plan - Problem List (1) Pneumonia Qualifiers: Pneumonia type: due to unspecified organism Laterality: left Lung location: upper lobe of lung Qualified Code(s): J18.9 - Pneumonia, unspecified organism Assessment/Plan: 04/01 03/31 WBC is continuing trended down, WBC is 13 today. as CRP trending down. Pt can slowly walk. pt feel better continue antibiotics. plan to have image study on tomorrow. 03/30, pt report he is improving but he still shortness of breath on exertion, and fatigue and tired. pt is slowly improved. his WBC is 15 and CRP is 17. pt is on Zosyn single agent antibiotics, and lower dosage of steroid for pneumonitis as well. will repeat CXR. order blood culture (2)thrombocytosis 03/31 pt had Plt 805. he had gradually increased Plt count. pt denies fever, flush symptoms. pt is asymptomatic. pt has significantly elevated CRP and ESR an d elevated Ferritin. it is likely due to reactive from his extensive pneumonia infection. we will repeat CBC, check jak2, continue lovenox, continue lab monitor. (3) Sepsis Impression: resolved. No longer meets criteria. (4) Protein-calorie malnutrition, moderate Impression: hx of COPD and hx of cigarette smoker, with currently marijuana. Acute protein calorie malnutrition noted on exam with severe muscle wasting, cachexia. Will follow up with nutrition service. (5) COPD (chronic obstructive pulmonary disease) Impression: History of COPD. CT confirmed advanced centrilobuluar emphysema. Continue bronchodilators. No acute exacerbation at this time. - Current Meds Current Meds: Current Medications Generic Name Dose Route Start Last Admin Trade Name Colton PRN Reason Stop Dose Admin Acetaminophen 650 mg 03/27/21 01:47 03/31/21 20:20 Acetaminophen 325 Mg Tablet PO 650 mg Q4HR PRN Administration Pain 1 to 4 Hydrocodone Bitart/Acetaminophen 1 tab 03/27/21 01:47 03/28/21 07:51 Hydrocod/Acetam 5/325 Mg Tablet PO 1 tab Q4HR PRN Administration Pain 5 to 7 Albuterol/Ipratropium 3 ml 03/27/21 07:00 04/01/21 11:22 Ipratropium/Albuterol 3 Ml Neb INH 3 ml RTQID DIANA Administration Budesonide 0.5 mg 03/27/21 07:00 04/01/21 06:27 Budesonide 0.5 Mg/2 Ml Neb INH 0.5 mg RTBID DIANA Administration Enoxaparin Sodium 40 mg 03/31/21 09:00 04/01/21 08:40 Enoxaparin 40 Mg/0.4 Ml Syringe SUBQ 40 mg DAILY DIANA Administration Formoterol Fumarate 20 mcg 03/27/21 07:00 04/01/21 06:27 Formoterol Fumarate Neb 20 Mcg/2 Ml INH 20 mcg RTBID DIANA Administration Guaifenesin 600 mg 03/27/21 09:00 04/01/21 08:40 Guaifenesin 600 Mg Tablet PO 600 mg DAILY DIANA Administration Guaifenesin 10 ml 03/27/21 01:44 03/29/21 00:00 Guaifenesin/Dextromethorphan 10 Ml Udc PO 10 ml Q6HR PRN Administration Cough Cefepime HCl 2 gm/ Sodium 100 mls @ 200 mls/hr 03/31/21 17:30 04/01/21 05:20 Chloride IV Infused Q12H DIANA Infusion Multivitamins/Minerals 1 tab 03/29/21 15:00 04/01/21 07:45 Multivitamin W/Minerals Tablet PO 1 tab DAILYWM DIANA Administration Pantoprazole Sodium 40 mg 03/27/21 07:00 04/01/21 06:49 Pantoprazole 40 Mg Tablet PO 40 mg QDAC DIANA Administration Prednisone 20 mg 04/01/21 08:00 04/01/21 07:45 Prednisone 20 Mg Tablet PO 20 mg DAILYWM DIANA Administration Saccharomyces Boulardii 250 mg 03/28/21 08:00 04/01/21 07:45 Saccharomyces Boulardii 250 Mg Capsule PO 250 mg BIDWM DIANA Administration Sodium Chloride 10 ml 03/27/21 01:47 03/30/21 00:19 Sodium Chloride Flush 0.9% 10 Ml Syringe IVP 10 ml PRN PRN Administration NEEDED PER PROVIDER ORDERS Sodium Chloride 10 ml 03/27/21 09:00 04/01/21 08:40 Sodium Chloride Flush 0.9% 10 Ml Syringe IVP 10 ml 0100,0900,1700 DIANA Administration Sucralfate 1 gm 03/27/21 07:00 04/01/21 11:12 Sucralfate 1 Gm/10 Ml Udc PO 1 gm ACHS DIANA Administration Tamsulosin HCl 0.4 mg 03/27/21 09:00 04/01/21 08:40 Tamsulosin 0.4 Mg Capsule PO 0.4 mg DAILY DIANA Administration - Lab Result Fish Bone Diagrams: 04/01/21 06:02 04/01/21 06:02 - Additional Planning My Orders: My Active Orders 03/31/21 14:56 JAK2 [id number] MUTATION QUANT [REFLAB] Urgent 03/31/21 17:30 Cefepime 2 gm Sodium Chloride 0.9% Minibag [Normal Saline 0.9% Minibag] 100 ml IV Q12H 04/01/21 08:00 predniSONE [Deltasone] 20 mg PO DAILYWM 04/02/21 05:00 BMP - BASIC METABOLIC PANEL [CHEM] DAILYLAB CBC - COMP BLD CT W/AUTO DIFF [HEME] DAILYLAB CRP - C-REACTIVE PROTEIN [CHEM] DAILYLAB ESR- ERYTHROCYTE SEDIMENT RATE [HEME] DAILYLAB 04/03/21 05:00 BMP - BASIC METABOLIC PANEL [CHEM] DAILYLAB CBC - COMP BLD CT W/AUTO DIFF [HEME] DAILYLAB CRP - C-REACTIVE PROTEIN [CHEM] DAILYLAB ESR- ERYTHROCYTE SEDIMENT RATE [HEME] DAILYLAB 04/04/21 05:00 BMP - BASIC METABOLIC PANEL [CHEM] DAILYLAB CBC - COMP BLD CT W/AUTO DIFF [HEME] DAILYLAB CRP - C-REACTIVE PROTEIN [CHEM] DAILYLAB ESR- ERYTHROCYTE SEDIMENT RATE [HEME] DAILYLAB 04/05/21 05:00 BMP - BASIC METABOLIC PANEL [CHEM] DAILYLAB CBC - COMP BLD CT W/AUTO DIFF [HEME] DAILYLAB ESR- ERYTHROCYTE SEDIMENT RATE [HEME] DAILYLAB Objective Vital Signs: Vital Signs - 24 hr 03/31/21 03/31/21 03/31/21 13:45 16:00 17:45 Temperature 37.1 C Heart Rate 98 92 Heart Rate [ 103 H Brachial] Respiratory 24 20 22 Rate Blood Pressure [Left Brachial artery] Blood Pressure 124/73 [Right Brachial artery] O2 Saturation 96 03/31/21 03/31/21 04/01/21 22:19 23:25 06:28 Temperature 36.7 C Heart Rate 85 98 Heart Rate [ 98 Brachial] Respiratory 18 16 18 Rate Blood Pressure [Left Brachial artery] Blood Pressure 136/72 H [Right Brachial artery] O2 Saturation 96 04/01/21 04/01/21 07:32 11:30 Temperature 36.7 C Heart Rate 90 Heart Rate [ 84 Brachial] Respiratory 18 18 Rate Blood Pressure 122/74 [Left Brachial artery] Blood Pressure [Right Brachial artery] O2 Saturation 98 Oxygen O2 Source Room air I&O (Last 24 Hrs): Intake and Output Totals x24h 03/30/21 03/31/21 04/01/21 23:59 23:59 23:59 Intake Total 2170 1540 1112 Balance 2170 1540 1112 - Results Results: Laboratory Results WBC 14.7 x10^3/uL (4.8-10.8) H 04/01/21 06:02 RBC 4.09 10^6/uL (4.70-6.10) L 04/01/21 06:02 Hgb 13.0 g/dL (14.0-18.0) L 04/01/21 06:02 Hct 39.1 % (42.0-52.0) L 04/01/21 06:02 MCV 95.6 fL (80.0-94.0) H 04/01/21 06:02 MCH 31.8 pg (27.0-31.0) H 04/01/21 06:02 MCHC 33.2 g/dL (32.0-36.0) 04/01/21 06:02 RDW 14.6 % (12.0-15.0) 04/01/21 06:02 Plt Count 879 10^3/uL (130-450) H* 04/01/21 06:02 MPV 8.8 fL (7.4-11.4) 04/01/21 06:02 Reticulocyte % (Auto) 1.21 % (0.5-2.3) 03/31/21 05:28 Neut # (Auto) 11.6 10^3/uL (1.5-6.6) H 04/01/21 06:02 Lymph # (Auto) 1.9 10^3/uL (1.5-3.5) 04/01/21 06:02 Lares # (Auto) 1.0 10^3/uL (0.0-1.0) 04/01/21 06:02 Eos # (Auto) 0.0 10^3/uL (0.0-0.7) 04/01/21 06:02 Baso # (Auto) 0.0 10^3/uL (0.0-0.1) 04/01/21 06:02 Absolute Nucleated RBC 0.00 x10^3/uL 04/01/21 06:02 Nucleated RBC % 0.0 /100WBC 04/01/21 06:02 ESR 54 mm/Hr (0-20) H 04/01/21 06:02 Absolute Retic 0.050 10^6/uL (0.020-0.110) 03/31/21 05:28 PT 13.0 secs (9.9-12.6) H 03/31/21 16:45 INR 1.2 (0.8-1.2) 03/31/21 16:45 Sodium 137 mmol/L (135-145) 04/01/21 06:02 Potassium 4.2 mmol/L (3.5-5.0) 04/01/21 06:02 Chloride 103 mmol/L (101-111) 04/01/21 06:02 Carbon Dioxide 28 mmol/L (21-32) 04/01/21 06:02 Anion Gap 6.0 (6-13) 04/01/21 06:02 BUN 15 mg/dL (6-20) 04/01/21 06:02 Creatinine 0.7 mg/dL (0.6-1.2) 04/01/21 06:02 Estimated GFR (MDRD) 117 (>89) 04/01/21 06:02 Glucose 107 mg/dL (70-100) H 04/01/21 06:02 Lactic Acid 1.0 mmol/L (0.5-2.2) 03/26/21 21:43 Calcium 8.5 mg/dL (8.5-10.3) 04/01/21 06:02 Iron 72 ug/dL (45-182) 03/31/21 05:28 TIBC 175 ug/dL (250-450) L 03/31/21 05:28 % Saturation 41 % (20-50) 03/31/21 05:28 Transferrin 125 mg/dL (180-329) L 03/31/21 05:28 Ferritin 1133.5 ng/mL (23.9-336.2) H 03/31/21 05:28 Lactate Dehydrogenase 135 IU/L (91-225) 03/31/21 05:28 Troponin I High Sens 7.4 ng/L (2.3-19.7) 03/26/21 20:30 C-Reactive Protein 7.8 mg/dL (0-1.0) H 04/01/21 06:02 B-Natriuretic Peptide 67 pg/mL (5-100) 03/26/21 20:30 Total Protein 7.0 g/dL (6.7-8.2) 03/29/21 04:32 Albumin 2.5 g/dL (3.2-5.5) L 03/29/21 04:32 Vitamin B12 701 pg/mL (180-914) 03/31/21 05:28 TSH 1.53 uIU/mL (0.34-5.60) 04/01/21 06:02 Nasal Adenovirus (PCR) NOT DETECTED 03/27/21 01:38 Nasal B. parapertussis DNA (PCR) NOT DETECTED 03/27/21 01:38 Nasal Coronavir 229E PCR NOT DETECTED 03/27/21 01:38 Nasal Coronavir HKU1 PCR NOT DETECTED 03/27/21 01:38 Nasal Coronavir NL63 PCR NOT DETECTED 03/27/21 01:38 Nasal Coronavir OC43 PCR NOT DETECTED 03/27/21 01:38 Nasal Enterovir/Rhinovir PCR NOT DETECTED 03/27/21 01:38 Nasal Influenza B PCR NOT DETECTED 03/27/21 01:38 Nasal Influenza A PCR NOT DETECTED 03/27/21 01:38 Nasal Parainfluen 1 PCR NOT DETECTED 03/27/21 01:38 Nasal Parainfluen 2 PCR NOT DETECTED 03/27/21 01:38 Nasal Parainfluen 3 PCR NOT DETECTED 03/27/21 01:38 Nasal Parainfluen 4 PCR NOT DETECTED 03/27/21 01:38 Nasal RSV (PCR) NOT DETECTED 03/27/21 01:38 Nasal Screen MRSA (PCR) NEGATIVE (NEGATIVE) 03/27/21 04:00 Nasal B.pertussis DNA PCR NOT DETECTED 03/27/21 01:38 Nasal C.pneumoniae (PCR) NOT DETECTED 03/27/21 01:38 Rohith Human Metapneumo PCR NOT DETECTED 03/27/21 01:38 Nasal M.pneumoniae (PCR) NOT DETECTED 03/27/21 01:38 Nasal SARS-CoV-2 (PCR) NOT DETECTED 03/27/21 01:38 Urine Opiates Screen NEGATIVE (NEGATIVE) 03/27/21 00:15 Ur Oxycodone Screen NEGATIVE (NEGATIVE) 03/27/21 00:15 Urine Methadone Screen NEGATIVE (NEGATIVE) 03/27/21 00:15 Ur Propoxyphene Screen NEGATIVE (NEGATIVE) 03/27/21 00:15 Ur Barbiturates Screen NEGATIVE (NEGATIVE) 03/27/21 00:15 Ur Tricyclics Screen NEGATIVE (NEGATIVE) 03/27/21 00:15 Ur Phencyclidine Scrn NEGATIVE (NEGATIVE) 03/27/21 00:15 Ur Amphetamine Screen NEGATIVE (NEGATIVE) 03/27/21 00:15 U Methamphetamines Scrn NEGATIVE (NEGATIVE) 03/27/21 00:15 U Benzodiazepines Scrn NEGATIVE (NEGATIVE) 03/27/21 00:15 Urine Cocaine Screen NEGATIVE (NEGATIVE) 03/27/21 00:15 U Cannabinoids Screen POSITIVE (NEGATIVE) H 03/27/21 00:15 Sepsis Event Note (H) - Evaluation Current Stage of Sepsis: Resolved Possible source of Sepsis: positive: Pulmonary - Sepsis Criteria Sepsis Criteria: Recorded Heart Rate greater than 90 bpm, Respiratory: Increasing oxygen requirements, WBC count greater than 12,000 or less than 4000 ABX Reporting Has patient been on IV antibiotics over the past 48 hours?: Yes
[2021-04-01] MEDS: ACETAMINOPHEN 325 MG TABLET PO PRN (21:06)
[2021-04-02] MEDS: SODIUM CHLORIDE FLUSH 0.9% 10 ML SYRINGE IVP SCH ×2 (00:48→08:42)
[2021-04-02] MEDS: CEFEPIME 2 GM in SODIUM CHLORIDE 0.9% MINIBAG 100 ML IV SCH (05:28)
[2021-04-02] MEDS: SUCRALFATE 1 GM/10 ML UDC PO SCH ×2 (05:31→10:48)
[2021-04-02] MEDS: PANTOPRAZOLE 40 MG TABLET PO SCH (05:31)
[2021-04-02 05:44] LABS: BASOPHILS # (AUTO) 0.1 10^3/uL (0.0-0.1); BASOPHILS % (AUTO) 0.4 %; EOSINOPHILS # (AUTO) 0.1 10^3/uL (0.0-0.7); EOSINOPHILS % (AUTO) 0.4 %; HCT - HEMATOCRIT 43.3 % (42.0-52.0); LYMPHOCYTES # (AUTO) 2.7 10^3/uL (1.5-3.5); LYMPHOCYTES % (AUTO) 23.6 %; MEAN CORPUSCULAR HEMOGLOBIN 31.9 pg (27.0-31.0); MEAN CORPUSCULAR HGB CONC 32.3 g/dL (32.0-36.0); MEAN CORPUSCULAR VOLUME 98.6 fL (80.0-94.0); MEAN PLATELET VOLUME 9.2 fL (7.4-11.4); MONOCYTES # (AUTO) 0.9 10^3/uL (0.0-1.0); MONOCYTES % (AUTO) 7.7 %; NEUTROPHILS # (AUTO) 7.6 10^3/uL (1.5-6.6); NEUTROPHILS % (AUTO) 66.4 %; RED BLOOD COUNT 4.39 10^6/uL (4.70-6.10); RED CELL DISTRIBUTION WIDTH 14.8 % (12.0-15.0); WHITE BLOOD COUNT 11.5 x10^3/uL (4.8-10.8)
[2021-04-02 05:56] LABS: PLT - PLATELET COUNT 1012 10^3/uL (130-450)
[2021-04-02 06:03] LABS: CALCIUM 8.8 mg/dL (8.5-10.3); CREATININE 0.8 mg/dL (0.6-1.2); CRP - C-REACTIVE PROTEIN 4.3 mg/dL (0-1.0); POTASSIUM 3.9 mmol/L (3.5-5.0)
[2021-04-02] MEDS: FORMOTEROL FUMARATE NEB 20 MCG/2 ML INH SCH (06:50)
[2021-04-02] MEDS: IPRATROPIUM/ALBUTEROL 3 ML NEB INH SCH ×2 (06:50→10:15)
[2021-04-02] MEDS: BUDESONIDE 0.5 MG/2 ML NEB INH SCH (06:50)
[2021-04-02] MEDS: MULTIVITAMIN W/MINERALS TABLET PO SCH (07:52)
[2021-04-02] MEDS: ACETAMINOPHEN 325 MG TABLET PO PRN (07:52)
[2021-04-02] MEDS: predniSONE 20 MG TABLET PO SCH (07:55)
[2021-04-02] MEDS: SACCHAROMYCES BOULARDII 250 MG CAPSULE PO SCH (07:55)
[2021-04-02] MEDS: guaiFENesin 600 MG TABLET PO SCH (08:41)
[2021-04-02] MEDS: TAMSULOSIN 0.4 MG CAPSULE PO SCH (08:42)
[2021-04-02] MEDS: ENOXAPARIN 40 MG/0.4 ML SYRINGE SUBQ SCH (08:42)
--- NOTE | 2021-04-02 09:08 | Discharge Plan ---
Discharge Plan Problem Reviewed?: Yes Disposition: Home, Self Care Condition: Stable Prescriptions: Albuterol 2.5 mg INH Q4H PRN #60 ml PRN Reason: Wheezing cefUROXime axetiL [Ceftin] 500 mg PO Q12H #10 tablet predniSONE [Deltasone] 1 tablet PO 0800 #5 tablet Saccharomyces Boulardii [Florastor] 250 mg PO BIDWM #10 cap Diet: Regular Activity Restrictions: Activity as Tolerated Shower Restrictions: No (fall precaution) Instruction Topics: Cefuroxime tablets, Platelets, Vaccination Pneumococcal, COPD, Pneumonia, Albuterol inhalation solution Health Concerns: pneumonia, COPD, thrombocytosis (elevated platelet) Plan of Treatment: you walk at [address] about 2 miles without respiratory distress. You are prescribed antibiotics to finish the treatment course. You may followup with pulmonary rehab and Manager Outreach as outpatient. you may have another image study as out-pt to followup after you recover from pneumonia. you have thrombocytosis, significantly elevated platelet. you have no bleeding, and your Hemodynamic is stable. We discussed with oncologist. We are concerned it is likely from reactive to infection/inflammation from your pneumonia. you may followup with your PCP to have CBC in one week and followup with application development project manager as out-pt. Care Goals: Stabilization, improvement of your medical conditions Assessment: Discussed the care plan with you, answered your question, you understood Additional Instructions or Follow Up instructions: You may follow-up with your PCP in 1 week to have CBC study, you may follow-up with promotions assistant and application development project manager as outpatient. Should your symptoms Return or worse such as bleeding, difficult breathing, chest pain, you may return to ER or call 911 for help No Smoking: If you smoke, Please STOP! Call for help.
--- NOTE | 2021-04-02 10:41 | DISCHARGE SUMMARY ---
Discharge Summary Admit Date: 03/27/21 Discharge Date: 04/02/21 Discharging Provider: Nikko Clement Condition at Discharge: Stable Discharge Disposition: 01 Home, Self Care Discharge Facility Name: home - DIAGNOSES Discharge Diagnoses with Status of Each Condition: (1) Pneumonia stable and improved. pt walked about 2 miles at hallway without respiratory dist ress. Patient is prescribed PO antibiotics to finish treatment course. patient may follow-up with image study to monitor pneumonia healing in one week. (2)thrombocytosis pt has significant elevated plt. pt has no bleeding, he is asymptomatic. discussed the result with pt and consulted with oncologist Dr. Zamora, Dr. Zamora believe it is reactive to the infection. According to Uptodate, NOT treating Aspirin for reactive thrombocytosis, there is no evidence of benefit. pt may followup with his PCP in one week to recheck CBC, closely monitor if bleeding and symptoms, pt may followup with clamp truck driver as out-pt. pt had Ishan and BCR test in hospital and in the pending, social security specialist will call pt if it is positive (3) Sepsis resolved. (4) Protein-calorie malnutrition, moderate consult with traffic control specialist and follow up with nutrition service instruction (5) COPD (chronic obstructive pulmonary disease) Impression: History of COPD. CT confirmed advanced centrilobuluar emphysema. No acute exacerbation at this time. I am ordering a home nebulizer machine to administer at bronchodilation to help treat for his COPD - [facility] History of Present Illness: refer from Dr. Oliveira's HPI on 03/27/21 The patient is a 56-year-old white male with past medical history of COPD however no oxygen dependence and no recent history of steroid use. He is compli ant with his inhalers and he quit smoking more than 15 years ago. Sees a filter screen cleaner regularly. He was vaccinated for Covid several months ago. Developed left-sided chest discomfort about a week ago and was seen in the ER on March 20, 2021. Conclusion of the ER work-up was left upper lobe pneumonia, pleuritic chest pain and gastritis in the setting of NSAID use for pain. The patient at that time had no oxygen requirement, was hemodynamically stable, although notably had white blood cell count at 26. Covid test was negative. He was felt stable to receive IV antibiotic during the ER stay and subsequently continue oral antibiotics/outpatient treatment. He was discharged with Zithro max and Augmentin prescriptions and received sucralfate for gastritis. He took the medications as prescribed but regardless continued with worsening symptoms. He felt chest congestion, had cough but could not expectorate. Continued with worsening left-sided chest pain, mostly when he coughed. [place] weak and ill in general, had sweats but no fever. In the past several days he could no longer smoke marijuana as he felt unwell. He described weight loss due to decreased oral intake. When he smokes marijuana his taste sensation changes and since he stopped smoking he feels strong smell and taste of all foods, most everything would make him nauseous therefore he significantly reduce his oral intake. Even before current illness he was thin. He presented back to the ER overnight on March 26 to March 27. He had normal oxygen saturation however was seen with increased work of breathing with respiratory rate in the high 20s/low 30s. Temperature was 37 Celsius. Patient was noted tachycardic with heart rate above 90. Repeat chest x-ray showed worsening left upper lobe infiltrate consistent with worsening pneumonia. Cardiac work-up was negative including troponin and BNP. Covid test pending. White blood cell count was elevated at 23.9, lactic acid however was normal. - HOSPITAL COURSE Hospital Course: Patient was admitted for tachypnea, shortness of breathing, pleuritic chest pain. Patient was found to have extensive left side upper lobe pneumonia And pneumonitis. Patient was treated intravenous antibiotics, patient was gradually improved. Then patient walk in the hallway 2 miles without respiratory distress. pt had over 500 high Plt at the admission, then elevated to over 1000 but pt is asymptomatic and no bleeding. pt was order Jak2 and BCR and result are pending. Consulted pt's thrombocytosis with Dr. Zamora, he believe it is reactive to his infection. Discussed the test result with pt. According to Uptodate, NOT treat ing Aspirin for reactive thrombocytosis, there is no evidence of benefit. pt may followup with his PCP in one week to recheck CBC, closely monitor if bleeding and other symptoms, pt may followup with clamp truck driver as out-pt. Patient agreed and stated he will follow up with. - ALLERGIES Allergies/Adverse Reactions: Allergies Allergy/AdvReac Type Severity Reaction Status Date / Time No Known Drug Allergies Allergy Verified 03/20/21 08:00 - MEDICATIONS Home Medications: Ambulatory Orders Medication Instructions Recorded Confirmed Albuterol Sulfate [Proair Hfa 1 - 2 puffs IH Q4HR PRN 03/20/21 03/26/21 Inhaler] Azithromycin [Zithromax] 250 mg PO DAILY #4 tablet 03/20/21 03/26/21 Fluticasone/Salmeterol [Advair 1 puffs IH BID 03/20/21 03/26/21 500-50 Diskus] Ipratropium [place] 1 spray NS DAILY 03/20/21 03/26/21 Sucralfate [Carafate] 1 gm PO ACHS #60 tablet 03/20/21 03/26/21 Tamsulosin [Flomax] 0.4 mg PO DAILY 03/20/21 03/26/21 Zolpidem [Ambien] 0 mg PO HS PRN 03/20/21 03/26/21 Albuterol 2.5 mg INH Q4H PRN #60 ml 04/02/21 Saccharomyces Boulardii [Florastor] 250 mg PO BIDWM #10 cap 04/02/21 cefUROXime axetiL [Ceftin] 500 mg PO Q12H #10 tablet 04/02/21 predniSONE [Deltasone] 1 tablet PO 0800 #5 tablet 04/02/21 - PHYSICAL EXAM AT DISCHARGE General Appearance: positive: No acute distress, Alert. negative: Lethargic Eyes Bilateral: positive: Normal inspection, PERRL, No lid inflammation ENT: positive: ENT inspection nml, No signs of dehydration. negative: Purulent nasal drainage Neck: positive: Nml inspection, Trachea midline. negative: Thyromegaly, Tracheal deviation Respiratory: positive: Chest non-tender, No respiratory distress, Other (Bilaterally diminished lung sounds). negative: Wheezes, Rales Cardiovascular: positive: Regular rate & rhythm, No murmur. negative: Tachyc ardia, Bradycardia, Systolic murmur, Diastolic murmur Peripheral Pulses: positive: 2+ Abdomen: positive: Non-tender, Nml bowel sounds, No distention. negative: Tenderness Back: positive: Nml inspection Skin: positive: Color nml, Warm, Dry. negative: Cyanosis Extremities: positive: Non-tender, Full ROM, Nml appearance. negative: Calf tenderness Neurologic/Psychiatric: positive: Oriented x3, Motor nml, Sensation nml, Mood/affect nml. negative: Weakness, Sensory loss, Facial droop, Slurred/abnml speech, Depressed mood/affect - LABS Result Diagrams: 04/02/21 05:02 04/02/21 05:02 - SEPSIS Current Stage of Sepsis: Resolved Possible source of Sepsis: Pulmonary Sepsis Criteria: Recorded Heart Rate greater than 90 bpm, Respiratory: Increasing oxygen requirements, WBC count greater than 12,000 or less than 4000 - FOLLOW UP Follow Up: [place] [address] [place] without respiratory distress. You are prescribed antibiotics to finish the treatment course. You may followup with pulmonary rehab and Project Administrative Assistant as outpatient. you may have another image study as out-pt to followup after you recover from pneumonia. you have thrombocytosis, significantly elevated platelet. you have no bleeding, and your Hemodynamic is stable. We discussed with oncologist. We are concerned it is likely from reactive to infection/inflammation from your pneumonia. you may followup with your PCP to have CBC in one week and followup with clamp truck driver as out-pt. You may follow-up with your PCP in 1 week to have CBC study, you may follow-up with filter screen cleaner and clamp truck driver as outpatient. Should your symptoms Return or worse such as bleeding, difficult breathing, chest pain, you may return to ER or call 911 for help - TIME SPENT Time Spent in Discharge (Minutes): 30
[2021-04-02 11:43] VITALS: BP 122/73
[2021-04-06 20:31] LABS: P210 BCR ABL1 NOT DETECTED; SOURCE BLOOD
== END 2021-04-02 11:46 | disposition home or self-care (01) | DRG 871 ==
LOC: ED 20:09 → MS2 03-27 01:47
PROVIDERS: ADMIT Internal Medicine; ATTEND Nurse Practitioner Gerontology
DX: A41.9 Sepsis, unspecified organism (principal); J18.9 Pneumonia, unspecified organism; E44.0 Moderate protein-calorie malnutrition; Z68.1 Body mass index [BMI] 19.9 or less, adult; D47.3 Essential (hemorrhagic) thrombocythemia; J43.2 Centrilobular emphysema; E87.6 Hypokalemia; Z20.822 Contact with and (suspected) exposure to COVID-19; N40.0 Benign prostatic hyperplasia without lower urinary tract symptoms; Z72.89 Other problems related to lifestyle; Z79.899 Other long term (current) drug therapy; Z87.891 Personal history of nicotine dependence; Z87.19 Personal history of other diseases of the digestive system
CPT/HCPCS: 0202U; 36415; 71046; 71260; 80048; 80306; 81206; 81270; 82040; 82607; 82728; 83540; 83605; 83615; 83880; 84155; 84443; 84466; 84484; 85025; 85045; 85610; 85651; 86140; 87040; 87640; 93005; 94640; 96374; 99284; 99285; A9270; J1650; J7512; J7626; Q9967

== ENCOUNTER 2024-01-15 05:00 | Emergency (ER) | payer MEDICAID ==
--- NOTE | 2024-01-15 05:53 | ED Physician Documentation ---
History of Present Illness - Stated complaint Stated Complaint: PUGH/BODY ACHE/NAUSEA - Chief complaint Chief Complaint: General - History obtained from History obtained from: Patient - Additonal information Additional information: The patient comes to the emergency department chief complaint of headache, body aches, nausea, diarrhea, and mild cough for the last couple of days. He states he has been drinking lots of water and has not vomited yet. He states he feels as though he has had a fever and chills but has not measured his temperature. 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 The patient's does state that she is on the end of a very similar illness. No other complaints at this time. PD PAST MEDICAL HISTORY - Past Medical History Cardiovascular: None Respiratory: COPD, Other Neuro: None Endocrine/Autoimmune: None GI: Ulcers : Benign prostate hypertrophy, Other HEENT: Other Psych: None Musculoskeletal: None Derm: None - Past Surgical History Past Surgical History: Yes General: Colonoscopy Cardiovascular: Other - Present Medications Home Medications: Ambulatory Orders Medication Instructions Recorded Confirmed Fluticasone Propion/Salmeterol 1 puffs IH BID 03/20/21 01/15/24 [Advair 500-50 Diskus] Ipratropium Reynolds 1 spray NS DAILY 03/20/21 01/15/24 Tamsulosin [Flomax] 0.4 mg PO DAILY 03/20/21 01/15/24 Albuterol 2.5 mg INH Q4H PRN #60 ml 04/02/21 01/15/24 predniSONE [Deltasone] 1 tablet PO 0800 #5 tablet 04/02/21 Ondansetron Odt [Zofran] 4 mg TL Q6H PRN #10 tablet 01/15/24 - Allergies Allergies/Adverse Reactions: Allergies Allergy/AdvReac Type Severity Reaction Status Date / Time No Known Drug Allergies Allergy Verified 03/20/21 08:00 - Social History Does the pt smoke?: No Smoking Status: Never smoker Does the pt drink ETOH?: No Does the pt have substance abuse?: Yes - Immunizations Immunizations are current?: Yes - POLST Patient has POLST: No PD ED PE NORMAL - Vitals Vital signs reviewed: Yes - General General: Alert and oriented X 3, Well developed/nourished, Other (The patient is moaning and laying in bed, massaging his temples. Otherwise no apparent distress.) - HEENT HEENT: Atraumatic, PERRL, EOMI, Moist mucous membranes - Neck Neck: Supple, no meningeal sign - Cardiac Cardiac: RRR, No murmur, Strong equal pulses - Respiratory Respiratory: No respiratory distress, Clear bilaterally - Abdomen Abdomen: Soft, Non tender, Non distended - Derm Derm: Normal color, Warm and dry, No rash - Extremities Extremities: No deformity, No edema, No calf tenderness / cord - Neuro Neuro: Other (Alert, grossly oriented and grossly intact.) - Psych Psych: Normal mood, Normal affect Results - Vitals Vitals: Vital Signs - 24 hr 01/15/24 01/15/24 05:07 06:18 Temperature 36.4 C L Heart Rate 99 83 Respiratory 16 16 Rate Blood Pressure 129/79 106/60 O2 Saturation 97 95 Oxygen O2 Source Room air - Labs Labs: Laboratory Tests 01/15/24 05:16 Nasal Adenovirus (PCR) NOT DETECTED Nasal B. parapertussis DNA (PCR) NOT DETECTED Nasal Coronavir 229E PCR NOT DETECTED Nasal Coronavir HKU1 PCR NOT DETECTED Nasal Coronavir NL63 PCR NOT DETECTED Nasal Coronavir OC43 PCR NOT DETECTED Nasal Enterovir/Rhinovir PCR NOT DETECTED Nasal Influenza B PCR NOT DETECTED Nasal Influenza A PCR NOT DETECTED Nasal Parainfluen 1 PCR NOT DETECTED Nasal Parainfluen 2 PCR NOT DETECTED Nasal Parainfluen 3 PCR NOT DETECTED Nasal Parainfluen 4 PCR NOT DETECTED Nasal RSV (PCR) NOT DETECTED Nasal B.pertussis DNA PCR NOT DETECTED Nasal C.pneumoniae (PCR) NOT DETECTED Rohith Human Metapneumo PCR NOT DETECTED Nasal M.pneumoniae (PCR) NOT DETECTED Nasal SARS-CoV-2 (PCR) NOT DETECTED PD Medical Decision Making - ED course Complexity details: reviewed results, re-evaluated patient, considered differential, d/w patient ED course: The patient was stable and his physical exam did not reveal any concerning findings. However, the patient was expressing discomfort, so he was given IM doses of droperidol and Toradol. The patient reported drinking a lot of water and so I did not give him IV fluids at this time. Respiratory PCR panel was sent and is pending at this time. Departure - Departure Disposition: 01 Home, Self Care Clinical Impression: Acute viral syndrome Condition: Stable Instructions: ED Viral Syndrome Prescriptions: Ondansetron Odt [Zofran] 4 mg TL Q6H PRN #10 tablet PRN Reason: Nausea / Vomiting Comments: Your symptoms are consistent with the illness that is going around in the co mmunity right now. Your viral panel has come up negative which means that you most likely have one of the many viral illnesses for which we do not have a specific test. You do not have a fever here, and your symptoms will ultimately pass on their own. You should drink 8 to 10 cups of water per day. We have given you some medicine to try to help you feel better. A prescription for nausea medicine has been electronically transmitted to the [facility] pharmacy in [place]. You may pick this up and take it as needed. Forms: PCP List
[2024-01-15] MEDS: KETOROLAC 60 MG/2 ML VIAL IM STA (06:01)
[2024-01-15] MEDS: DROPERIDOL 5 MG/2 ML VIAL IM STA (06:01)
[2024-01-15 06:35] LABS: B. PARAPERTUSSIS- RESP PCR PAN NOT DETECTED; B. PERTUSSIS- RESP PCR PANEL NOT DETECTED; C. PNEUMONIAE- RESP PCR PANEL NOT DETECTED; CORONAVIRUS 229E-RESP PCR NOT DETECTED; CORONAVIRUS HKU1-RESP PCR NOT DETECTED; CORONAVIRUS NL63-RESP PCR NOT DETECTED; CORONAVIRUS OC43-RESP PCR NOT DETECTED; HUMAN METAPNEUMOVIRUS NOT DETECTED; INFLUENZA A- RESP PCR PANEL NOT DETECTED; INFLUENZA B - RESP PCR PANEL NOT DETECTED; M. PNEUMONIAE- RESP PCR PANEL NOT DETECTED; PARAINFLUENZA VIRUS 1 NOT DETECTED; PARAINFLUENZA VIRUS 2 NOT DETECTED; PARAINFLUENZA VIRUS 3 NOT DETECTED; PARAINFLUENZA VIRUS 4 NOT DETECTED; RHINOVIRUS/ENTEROVIRUS NOT DETECTED; RSV- RESP PCR PANEL NOT DETECTED; SARS-CoV-2 -RESP PCR PANEL NOT DETECTED
[2024-01-15 07:02] VITALS: BP 110/62; O2SAT 98
== END 2024-01-15 06:52 | disposition home or self-care (01) ==
LOC: ED 05:00
DX: B34.9 Viral infection, unspecified (principal); J44.9 Chronic obstructive pulmonary disease, unspecified; N40.0 Benign prostatic hyperplasia without lower urinary tract symptoms; Z79.899 Other long term (current) drug therapy
CPT/HCPCS: 87633; 96372; 99283